=== PATIENT | female | born 1980 | race Caucasian/White ===

== ENCOUNTER 2021-04-16 15:05 | Inpatient (IN) ==
[2021-04-16] MEDS ORDERED: SODIUM CHLORIDE 0.9% 1000ML 1,000 ML IV ONE (15:22)
[2021-04-16 15:44] LABS: Basophils # (auto) 0.01 K/uL (0-0.2); Basophils % (auto) 0.1 %; Eosinophils # (auto) 0.06 K/uL (0-0.5); Eosinophils % (auto) 0.7 %; Hemoglobin 15.2 g/dL (12.0-16.0); Immature Granulocytes # (auto) 0.01 K/uL (0.00-0.02); Immature Granulocytes % (auto) 0.1 %; Lymphocytes # (auto) 2.37 K/uL (1.2-3.4); Lymphocytes % (auto) 26.6 %; Mean Corpuscular Hemoglobin 31.5 pg (25-34); Mean Corpuscular Hgb Conc 33.8 g/dL (32-36); Mean Corpuscular Volume 93.4 fL (80-100); Mean Platelet Volume 9.8 fL (7.4-10.4); Monocytes # (auto) 0.74 K/uL (0.11-0.59); Monocytes % (auto) 8.3 %; Neutrophils # (auto) 5.71 K/uL (1.4-6.5); Neutrophils % (auto) 64.2 %; Platelet Count 331 K/uL (130-400); RDW Standard Deviation 47.7 fL (36.4-46.3); Red Blood Count 4.82 M/uL (4.2-5.4)
[2021-04-16 16:03] LABS: Alanine Aminotransferase 9 U/L (7-52); Albumin Globulin Ratio 1.6 (0.9-2); Alkaline Phosphatase 87 U/L (34-104); Anion Gap 6 (3-11); Aspartate Aminotransferase 13 U/L (13-39); BUN Creatinine Ratio 17.6 (10-20); Bilirubin,Total 0.2 mg/dl (0.2-1.0); Blood Urea Nitrogen 9 mg/dl (6-23); Calcium 8.1 mg/dl (8.5-10.1); Carbon Dioxide 25 mmol/L (21-32); Chloride 109 mmol/L (98-107); Creatinine Clr Calc Pharmacy 87.8 ml/min; Est GFR (African American) 137.5 ml/min; Est GFR (Non-African American) 118.6 ml/min; Globulin 2.5 gm/dl (2.5-4.0); Glucose 83 mg/dl (70-99(Fasting)); Lipase 31 U/L (11-82); Magnesium 1.8 mg/dl (1.7-2.4); Phosphorus 3.2 mg/dl (2.5-4.9); Potassium 3.9 mmol/L (3.5-5.1); Sodium 140 mmol/L (136-145); Total Protein 6.5 gm/dl (6.0-8.3)
[2021-04-16 16:07] LABS: Troponin I < 0.03 ng/ml (0-0.04)
--- NOTE | 2021-04-16 16:18 | XRay Report ---
XR chest 1V portable CLINICAL HISTORY: Atypical chest pain. COMPARISON STUDY: Chest radiograph September 13, 2015. FINDINGS: Lung volumes are normal. Lungs are clear. There is no pneumothorax or pleural effusion. Car diac size is normal. Mediastinal contours are normal. There is no evidence for pulmonary edema. IMPRESSION: No acute cardiopulmonary findings. ACT 112: Negative or not required by law. Electronically signed by: Isael Lucio M.D. 04/16/2021 4:17 PM
--- NOTE | 2021-04-16 16:57 | CT Scan Report ---
CT OF THE HEAD WITHOUT CONTRAST CLINICAL HISTORY: Weakness. Multiple sclerosis. COMPARISON STUDY: No previous studies for comparison. CT DOSE: 773.57 mGy.cm TECHNIQUE: Helical axial images of the head were obtained without IV contrast. Automated exposure con trol was utilized for the study. A dose lowering technique was utilized adhering to the principles o f ALARA. FINDINGS: No acute intracranial hemorrhage, midline shift or mass effect is present. Note is made of several periventricular hypodensities, the most prominent of which is within the left frontal lobe. T he ventricular system is unremarkable. The basal cisterns are patent. No extra-axial collections are present. There are no findings to suggest acute dural sinus thrombosis or acute territorial infarct. No significant calvarial abnormalities are present. Visualized portions of the sinuses and mastoid ai r cells are clear. IMPRESSION: 1. No acute intracranial findings. 2. Several white matter hypodensities. Although nonspecific, these favor previous sites of demyelinat ion given the clinical history. ACT 112: Negative or not required by law. Electronically signed by: Isael Lucio M.D. 04/16/2021 4:55 PM
[2021-04-16 17:05] LABS: Pregnancy Test, Serum Negative (Negative)
[2021-04-16] MEDS ORDERED: methylPREDNISolone 125 MG/2 ML VIAL IV STA (18:10)
[2021-04-16] MEDS ORDERED: methylPREDNISolone 1,000 MG in DEXTROSE 5% 250 ML IV SCH (18:30)
[2021-04-16 18:40] LABS: Appearance Urine Cloudy (Clear); Bacteria Urine Automated 4+ (Negative); Bilirubin Urine Negative (Negative); Blood Urine Negative (Negative); Color Urine Yellow; Epithelial Cell Urine Auto >30 /lpf (0-5); Glucose Urine UA Negative (Negative); Ketones Urine Negative (Negative); Leukocyte Esterase Urine 1+ (Negative); Nitrite Urine Positive (Negative); Protein Urine Negative (Negative); RBC Urine Automated 0-4 /hpf (0-4); Urobilinogen Urine Negative (Negative); WBC Urine Automated >30 /hpf (0-5)
--- NOTE | 2021-04-16 19:33 | Emergency Department Note ---
Impression & Plan Multiple sclerosis, Dehydration, Weakness generalized ED Provider Note NAME: TITA VICENTE AGE: 40 SEX: F ARRIVES VIA: Walk-In INFORMANT: Patient, family ED PROVIDER(S): Gerardo Del Cid MD CHIEF COMPLAINT: MS flare PLAN: Disposition: Admit MEDICAL DECISION MAKING: The patient is a pleasant 40-year-old woman with a past medical history of MS who presents emerge department accompanied by her family for evaluation of worsening MS symptoms of weakness and gait instability over the past week. They also add she has worsening hearing. The family report that the got behind on her scheduled infusions but have a scheduled infusion tomorrow for Tysabri. They deny recent fevers, chills, cough, congestion, GI or symptoms. On arrival the patient is chronically ill-appearing but no acute distress, afebrile with HR in the 120s and otherwise stable vital signs. She appears clinically dry. She has generalized weakness in all extremities and has poor motor control throughout. EKG without overt acute ischemia. CXR negative for acute cardiopulmonary process. WBC, H/H and platelets normal limits. Chemistry without metabolic acidosis. Electrolytes LFTs are unremarkable. Troponin negative/undetectable. Lipase not elevated. hCG was negative. A UA is suspicious for infection albeit with epithelial cells present, will defer decision to treat to admitting team. COVID-19, RNA, JUANIS test was negative. CT of the head negative for acute pr ocess. Evidence of the patient's MS is noted. Given the severity of the patient's MS flare reasonable to meet the patient for further management. Appreciate discussion with [facility] neurology on-call, Dr. Crain. Agrees can proceed with steroids at this time as the patient has no history of PML and has yet to receive her Tysabri treatment. Case was discussed with Dr. Pappas, [facility] hospitalist, who will evaluate the patient for admission. Triage Nursing notes reviewed and agree them. Prior medical records reviewed Vital Signs: reviewed and remarkable for tachycardia. Differential diagnosis: Infection, dehydration, metabolic abnormality, hypo/hyperglycemia, electrolyte disturbance, anemia, hypoxia, cardiac sources, intracerebral event, toxicologic, neurologic, as well as other pathologies. ER treatment provided: See below. Diagnostics interpreted by me: ECG: NSR, 97bpm, no ectopy, no overt ST elevation or depression. Cardiac Monitoring: An order for continuous cardiac monitoring was placed and dana echevarria NSR, 97bpm, no ectopy. Laboratory studies: See below Imaging studies: See below Consultation(s): Case was discussed with Dr. Pappas, [facility] hospitalist, who will evaluate the patient for admission. HPI: The patient is a pleasant 40-year-old woman with a past medical history of MS who presents emerge department accompanied by her family for evaluation of worsening MS symptoms of weakness and gait instability over the past week. They also add she has worsening hearing. The family report that the got behind on her scheduled infusions but have a scheduled infusion tomorrow for Tysabri. They deny recent fevers, chills, cough, congestion, GI or symptoms. ROS: See above HPI for pertinent positives & negatives. A total of 10 systems reviewed and were otherwise negative. PAST MEDICAL HISTORY:See Below PAST SURGICAL HISTORY:See Below FAMILY HISTORY:See Below SOCIAL HISTORY:See Below HOME MEDICATIONS:See Below ALLERGIES:See Below VITALS:See Below PHYSICAL EXAMINATION: GENERAL: Awake, alert, fatigued/cachectic, chronically ill-appearing, in no distress HENT: Normocephalic, atraumatic. Oropharynx with dry mucous membranes and othe rwise unremarkable. EYES: Normal conjunctiva. Sclera non-icteric. NECK: Supple. No nuchal rigidity. FROM. No JVD. RESPIRATORY: Clear to auscultation. CARDIAC: Tachycardic rate, normal rhythm. Extremities warm and well perfused. Pulses equal. ABDOMEN: Soft, non-distended. No tenderness to palpation. No rebound or guarding. No masses. RECTAL: Deferred. MUSCULOSKELETAL: Chest examination reveals no tenderness. The back is symmetrical on inspection without obvious abnormality. There is no CVA tende rness to palpation. No joint edema. LOWER EXTREMITIES: Calves are equal size bilaterally and non-tender. No edema. No discoloration. NEURO: Generalized weakness in all extremities with poor motor coordination. SKIN: No rash or jaundice noted. Gerardo Del Cid MD Past Med/Surg History Medical History Multiple sclerosis Family History Other Family history non-contributory Social History Smoking Status: Current every day smoker Do You Dip or Chew Tobacco: No; Tobacco Cessation Education Requested by Patient: No Hx Alcohol Use: No Hx Substance Use: No Preferred Language: Malawian Communication Ability: Effective Certified Pharmacist Assistant Required: No Beliefs That Will Affect Care: None Current Living Situation: Parent Feels Safe at Home: Yes Safety Concerns: Feels Safe At This Time Assistive Devices: None Allergies Allergies Allergy/AdvReac Type Severity Reaction Status Date / Time amoxicillin Allergy Intermediate Facial Verified 04/16/21 17:09 swelling Bactrim Allergy Intermediate hands numb Verified 09/19/15 15:27 clavulanic acid Allergy Intermediate Facial Verified 04/16/21 17:09 swelling Sulfa (Sulfonamide Allergy Intermediate lips swell Verified 04/16/21 17:09 Antibiotics) sulfamethoxazole Allergy Intermediate hands numb Verified 04/16/21 17:09 trimethoprim Allergy Intermediate hands numb Verified 04/16/21 17:09 cefuroxime Allergy Unknown Hands-numbness Verified 04/16/21 17:09 and swelling azithromycin Allergy Swelling Verified 04/16/21 17:09 of Lip/Tongue/Throat Home Meds Home Medications Medication Instructions Recorded Confirmed ibuprofen 200 mg tablet (Advil) 400 mg PO Q6H PRN 04/16/21 04/16/21 Results & Data (ED) Vital Signs Vital Signs - 24 hr 04/16/21 15:07 04/16/21 15:30 04/16/21 16:00 Temperature 36.7 C Temperature Source Temporal Artery Scan Pulse Rate 122 H 90 82 Pulse Rate from SpO2 Sensor 90 82 Respiratory Rate 20 14 15 Respiratory Effort / Characteristics Non-Labored Respiratory Depth Normal Blood Pressure 102/53 L 99/61 L 120/65 Blood Pressure Mean 69 73 83 Pulse Oximetry 92 99 98 Oxygen Delivery Method Room Air Room Air Room Air Sepsis Recent Fever Within 48 Hours No Sepsis New/Unexplained Change in Mental Status No Sepsis Action Taken by Nursing No Action Required 04/16/21 16:44 04/16/21 17:00 04/16/21 17:30 Temperature Temperature Source Pulse Rate 79 83 79 Pulse Rate from SpO2 Sensor 79 82 79 Respiratory Rate 18 16 19 Respiratory Effort / Characteristics Respiratory Depth Blood Pressure 108/69 103/49 L 108/53 L Blood Pressure Mean 82 67 71 Pulse Oximetry 100 99 100 Oxygen Delivery Method Room Air Room Air Room Air Sepsis Recent Fever Within 48 Hours Sepsis New/Unexplained Change in Mental Status Sepsis Action Taken by Nursing Laboratory Data Attestation: I reviewed the patient's lab results. Result diagrams: 04/16/21 15:09 04/16/21 15:09 Lab Results 04/16/21 04/16/21 04/16/21 Range/Units 15:09 15:09 16:26 WBC 8.90 (4.8-10.8) K/uL RBC 4.82 (4.2-5.4) M/uL Hgb 15.2 (12.0-16.0) g/dL Hct 45.0 (37-47) % MCV 93.4 (80-100) fL MCH 31.5 (25-34) pg MCHC 33.8 (32-36) g/dL RDW Std Deviation 47.7 H (36.4-46.3) fL RDW Coeff of Dante 14.0 (11.5-14.5) % Plt Count 331 (130-400) K/uL MPV 9.8 (7.4-10.4) fL Immature Gran % (Auto) 0.1 % Neut % (Auto) 64.2 % Lymph % (Auto) 26.6 % [place] % (Auto) 8.3 % Eos % (Auto) 0.7 % Baso % (Auto) 0.1 % Neut # (Auto) 5.71 (1.4-6.5) K/uL Lymph # (Auto) 2.37 (1.2-3.4) K/uL [place] # (Auto) 0.74 H (0.11-0.59) K/uL Eos # (Auto) 0.06 (0-0.5) K/uL Baso # (Auto) 0.01 (0-0.2) K/uL Immature Gran # (Auto) 0.01 (0.00-0.02) K/uL Sodium 140 (136-145) mmol/L Potassium 3.9 (3.5-5.1) mmol/L Chloride 109 H (98-107) mmol/L Carbon Dioxide 25 (21-32) mmol/L Anion Gap 6 (3-11) BUN 9 (6-23) mg/dl Creatinine 0.51 L (0.6-1.2) mg/dl Est Cr Clr Drug Dosing 87.8 ml/min Est GFR ( Amer) 137.5 ml/min Est GFR (Non-Af Amer) 118.6 ml/min BUN/Creatinine Ratio 17.6 (10-20) Glucose 83 (70-99(Fasting)) mg/dl Calcium 8.1 L (8.5-10.1) mg/dl Phosphorus 3.2 (2.5-4.9) mg/dl Magnesium 1.8 (1.7-2.4) mg/dl Total Bilirubin 0.2 (0.2-1.0) mg/dl AST 13 (13-39) U/L ALT 9 (7-52) U/L Alkaline Phosphatase 87 (34-104) U/L Troponin I < 0.03 (0-0.04) ng/ml Total Protein 6.5 (6.0-8.3) gm/dl Albumin 4.0 (3.4-5.0) gm/dl Globulin 2.5 (2.5-4.0) gm/dl Albumin/Globulin Ratio 1.6 (0.9-2) Lipase 31 (11-82) U/L HCG, Qual Negative (Negative) Urine Color Urine Appearance (Clear) Urine pH (4.5-7.5) Ur Specific [place] (1.000-1.030) Urine Protein (Negative) Urine Glucose (UA) (Negative) Urine Ketones (Negative) Urine Blood (Negative) Urine Nitrite (Negative) Urine Bilirubin (Negative) Urine Urobilinogen (Negative) Ur Leukocyte Esterase (Negative) Urine WBC (Auto) (0-5) /hpf Urine RBC (Auto) (0-4) /hpf U Hyaline Cast (Auto) (0-5) /lpf U Epithel Cells (Auto) (0-5) /lpf Urine Bacteria (Auto) (Negative) Urine Yeast SARS-CoV-2, RNA, NAAT (NEGATIVE) 04/16/21 04/16/21 Range/Units 16:27 18:20 WBC (4.8-10.8) K/uL RBC (4.2-5.4) M/uL Hgb (12.0-16.0) g/dL Hct (37-47) % MCV (80-100) fL MCH (25-34) pg MCHC (32-36) g/dL RDW Std Deviation (36.4-46.3) fL RDW Coeff of Dante (11.5-14.5) % Plt Count (130-400) K/uL MPV (7.4-10.4) fL Immature Gran % (Auto) % Neut % (Auto) % Lymph % (Auto) % [place] % (Auto) % Eos % (Auto) % Baso % (Auto) % Neut # (Auto) (1.4-6.5) K/uL Lymph # (Auto) (1.2-3.4) K/uL [place] # (Auto) (0.11-0.59) K/uL Eos # (Auto) (0-0.5) K/uL Baso # (Auto) (0-0.2) K/uL Immature Gran # (Auto) (0.00-0.02) K/uL Sodium (136-145) mmol/L Potassium (3.5-5.1) mmol/L Chloride (98-107) mmol/L Carbon Dioxide (21-32) mmol/L Anion Gap (3-11) BUN (6-23) mg/dl Creatinine (0.6-1.2) mg/dl Est Cr Clr Drug Dosing ml/min Est GFR ( Amer) ml/min Est GFR (Non-Af Amer) ml/min BUN/Creatinine Ratio (10-20) Glucose (70-99(Fasting)) mg/dl Calcium (8.5-10.1) mg/dl Phosphorus (2.5-4.9) mg/dl Magnesium (1.7-2.4) mg/dl Total Bilirubin (0.2-1.0) mg/dl AST (13-39) U/L ALT (7-52) U/L Alkaline Phosphatase (34-104) U/L Troponin I (0-0.04) ng/ml Total Protein (6.0-8.3) gm/dl Albumin (3.4-5.0) gm/dl Globulin (2.5-4.0) gm/dl Albumin/Globulin Ratio (0.9-2) Lipase (11-82) U/L HCG, Qual (Negative) Urine Color Yellow Urine Appearance Cloudy A (Clear) Urine pH 7.0 (4.5-7.5) Ur Specific [place] 1.020 (1.000-1.030) Urine Protein Negative (Negative) Urine Glucose (UA) Negative (Negative) Urine Ketones Negative (Negative) Urine Blood Negative (Negative) Urine Nitrite Positive A (Negative) Urine Bilirubin Negative (Negative) Urine Urobilinogen Negative (Negative) Ur Leukocyte Esterase 1+ H (Negative) Urine WBC (Auto) >30 H (0-5) /hpf Urine RBC (Auto) 0-4 (0-4) /hpf U Hyaline Cast (Auto) 10-30 H (0-5) /lpf U Epithel Cells (Auto) >30 H (0-5) /lpf Urine Bacteria (Auto) 4+ H (Negative) Urine Yeast Not Reportable SARS-CoV-2, RNA, NAAT NEGATIVE (NEGATIVE) Administered Medications Discontinued Medications Sodium Chloride (Nss 1000ml) 1,000 mls @ 999 mls/hr IV .Q1H1M ONE Stop: 04/16/21 16:22 Last Infusion: 04/16/21 16:37 Dose: 0 mls/hr Documented by: [id number] Admin: 04/16/21 15:30 Dose: 999 mls/hr Documented by: [id number] Methylprednisolone 1,000 mg/ (Dextrose) 266 mls @ 266 mls/hr IV TODAY@1830 BRIDGET Stop: 04/16/21 19:29 Last Infusion: 04/16/21 20:20 Dose: 0 mls/hr Documented by: [id number] Admin: 04/16/21 19:16 Dose: 266 mls/hr Documented by: [id number] Methylprednisolone 734 mg/ (Dextrose) 261.744 mls @ 266 mls/hr IV NOW ONE Stop: 04/16/21 21:44 Last Infusion: 04/16/21 22:17 Dose: 0 mls/hr Documented by: [id number] Admin: 04/16/21 21:17 Dose: 266 mls/hr Documented by: [id number] Imaging Data Radiologist's Impression: Chest X-Ray 04/16/21 15:22 XR chest 1V portable CLINICAL HISTORY: Atypical chest pain. COMPARISON STUDY: Chest radiograph September 13, 2015. FINDINGS: Lung volumes are normal. Lungs are clear. There is no pneumothorax or pleural effusion. Cardiac size is normal. Mediastinal contours are normal. There is no evidence for pulmonary edema. IMPRESSION: No acute cardiopulmonary findings. ACT 112: Negative or not required by law. Electronically signed by: Isael Lucio M.D. 04/16/2021 4:[address] 04/16/21 16:10 CT OF THE HEAD WITHOUT CONTRAST CLINICAL HISTORY: Weakness. Multiple sclerosis. COMPARISON STUDY: No previous studies for comparison. CT DOSE: 773.57 mGy.cm TECHNIQUE: Helical axial images of the head were obtained without IV contrast. Automated exposure control was utilized for the study. A dose lowering technique was utilized adhering to the principles of ALARA. FINDINGS: No acute intracranial hemorrhage, midline shift or mass effect is present. Note is made of several periventricular hypodensities, the most prominent of which is within the left frontal lobe. The ventricular system is unremarkable. The basal cisterns are patent. No extra-axial collections are present. There are no findings to suggest acute dural sinus thrombosis or acute territorial infarct. No significant calvarial abnormalities are present. Vi sualized portions of the sinuses and mastoid air cells are clear. IMPRESSION: 1. No acute intracranial findings. 2. Several white matter hypodensities. Although nonspecific, these favor previous sites of demyelination given the clinical history. ACT 112: Negative or not required by law. Electronically signed by: Isael Lucio M.D. 04/16/2021 4:55 PM Discharge Plan Visit Data Chief Complaint: Neuro Symptoms/Deficit Stated Complaint: SLURRED SPEECH, NOT ABLE TO HEAR, OFF BALANCE Discharge Problem: Multiple sclerosis, Dehydration, Weakness generalized Patient Disposition: Admitted As Inpatient Discharge Instructions Interventions: ED Discharge Assessment Last Done: 04/16/21 20:56
--- NOTE | 2021-04-16 19:40 | History & Physical Report ---
Date of Service April 16, 2021 Assessment & Plan (1) Multiple sclerosis: Plan: MS Progression Present on admission due to worsening weakness from MS progression CT head showed several white matter hypodensities. Patient is scheduled tomorrow with neurology to start onTysabri injection Consult neurology Case discussed with Dr. Crain recommend to start on IV methylprednisone 1000 mg daily for 5 days We will get an MRI of the brain Ambulatory dysfunction Due to MS exacerbation PT/OT eval Fall precaution DVT prophylaxis SCD CODE status Full code History of Present Illness Chief Complaint: MS flare-ups Primary Care Provider: Gladys Ortiz MD 40 years old with past medical history of multiple sclerosis was brought to the ER due to worsening weakness and ambulatory dysfunction. History obtained mostly from the family due to patient is very hard of hearing. For the past 2 w eeks family said patient has been very weak. She fell couple times due to ambulatory dysfunction. Her hearing function has been declining lately as per family. Patient saw neurology Dr. Villafana on 03/[address] Villafana was planning to start on Tysabri injection tomorrow for the MS progression. Denies any chest pain, palpitation, numbness, dizziness, shortness of breath. Allergies Allergy/AdvReac Type Severity Reaction Status Date / Time amoxicillin Allergy Intermediate Facial Verified 04/16/21 17:09 swelling Bactrim Allergy Intermediate hands numb Verified 09/19/15 15:27 clavulanic acid Allergy Intermediate Facial Verified 04/16/21 17:09 swelling Sulfa (Sulfonamide Allergy Intermediate lips swell Verified 04/16/21 17:09 Antibiotics) sulfamethoxazole Allergy Intermediate hands numb Verified 04/16/21 17:09 trimethoprim Allergy Intermediate hands numb Verified 04/16/21 17:09 cefuroxime Allergy Unknown Hands-numbness Verified 04/16/21 17:09 and swelling azithromycin Allergy Swelling Verified 04/16/21 17:09 of Lip/Tongue/Throat Home Medications Medication Instructions Recorded Confirmed Type ibuprofen 200 mg tablet (Advil) 400 mg PO Q6H PRN 04/16/21 04/16/21 History Past Med/Surg History Medical History Multiple sclerosis Family History Other Family history non-contributory Social History Smoking Status: Current every day smoker Do You Dip or Chew Tobacco: No; Tobacco Cessation Education Requested by Patient: No Hx Alcohol Use: No Hx Substance Use: No Preferred Language: Ivorian Communication Ability: Effective Human Factors Ergonomist Required: No Beliefs That Will Affect Care: None Current Living Situation: Parent Feels Safe at Home: Yes Safety Concerns: Feels Safe At This Time Assistive Devices: None Review of Systems Review of Systems: All systems reviewed & are unremarkable except as noted in Subjective Physical Exam Physical Exam: General- cachetic Head- atraumatic Eyes- PERRL, EOMI, ENT- +decrease hearing function Neck- supple, no JVD Lungs- clear to auscultation Heart- regular rhythm; no murmur Abdomen- normal bowel sounds, soft, nontender Extremities- no calf tenderness Neuro- alert, oriented; PERRL, EOMI; no facial palsy; no dysarthria Skin- warm & dry Results & Data Results & Data ([facility]) Vital Signs (Past 12 Hours) Vital Signs Temp Pulse Resp BP Pulse Ox 04/16/21 17:30 79 19 108/53 L 100 04/16/21 17:00 83 16 103/49 L 99 04/16/21 16:44 79 18 108/69 100 04/16/21 16:00 82 15 120/65 98 04/16/21 15:30 90 14 99/61 L 99 04/16/21 15:07 36.7 C 122 H 20 102/[address] OF THE HEAD WITHOUT CONTRAST CLINICAL HISTORY: Weakness. Multiple sclerosis. COMPARISON STUDY: No previous studies for comparison. CT DOSE: 773.57 mGy.cm TECHNIQUE: Helical axial images of the head were obtained without IV contrast. Automated exposure control was utilized for the study. A dose lowering technique was utilized adhering to the principles of ALARA. FINDINGS: No acute intracranial hemorrhage, midline shift or mass effect is present. Note is made of several periventricular hypodensities, the most prominent of which is within the left frontal lobe. The ventricular system is unremarkable. The basal cisterns are patent. No extra-axial collections are present. There are no findings to suggest acute dural sinus thrombosis or acute territorial infarct. No significant calvarial abnormalities are present. Visualized portions of the sinuses and mastoid air cells are clear. IMPRESSION: 1. No acute intracranial findings. 2. Several white matter hypodensities. Although nonspecific, these favor previous sites of demyelination given the clinical history. ACT 112: Negative or not required by law. Electronically signed by: Isael Lucio M.D. 04/16/2021 4:55 PM Dictated:04/16/21 1651 Transcribed: 04/16/211650 XR chest 1V portable CLINICAL HISTORY: Atypical chest pain. COMPARISON STUDY: Chest radiograph September 13, 2015. FINDINGS: Lung volumes are normal. Lungs are clear. There is no pneumothorax or pleural effusion. Cardiac size is normal. Mediastinal contours are normal. There is no evidence for pulmonary edema. IMPRESSION: No acute cardiopulmonary findings. ACT 112: Negative or not required by law. Electronically signed by: Isael Lucio M.D. 04/16/2021 4:17 PM Dictated:04/16/21 1616 Transcribed: 04/16/21 1616
[2021-04-16] MEDS ORDERED: DEXTROSE 5% IV ONE (20:45)
[2021-04-16] MEDS ORDERED: METHYLPREDNISOLONE IV ONE (20:45)
--- NOTE | 2021-04-17 12:48 | Electrocardiogram Report ---
Test Reason : Blood Pressure : / mmHG Vent. Rate : 097 BPM Atrial Rate : 097 BPM P-R Int : 112 ms QRS Dur : 082 ms QT Int : 334 ms P-R-T Axes : 088 124 075 degrees QTc Int : 424 ms Normal sinus rhythm Biatrial enlargement Right axis deviation Abnormal ECG When compared with ECG of 13-SEP-2015 19:06, QRS axis Shifted right Confirmed by King Sandoval [id number]) on 04/17/2021 12:47:41 PM Referred By: REFERRED SELF Confirmed By:King Sandoval
[2021-04-17] MEDS: SODIUM CHLORIDE 0.9% 1000ML 1,000 ML IV SCH ×2 (13:06→22:39)
[2021-04-17] MEDS: CARBAMIDE PEROXIDE 6.5% 15 ML BTL OT SCH (16:21)
[2021-04-17] MEDS: methylPREDNISolone 1,000 MG in DEXTROSE 5% 250 ML IV SCH (19:36)
--- NOTE | 2021-04-17 20:32 | Consultation Report ---
DATE OF SERVICE: 04/17/2021 REASON FOR CONSULTATION: Multiple sclerosis. HISTORY OF PRESENT ILLNESS: Rachana is a patient of Dr. Villafana's who has been relatively noncompliant over the last several months or years. On this background, Dr. Villafana recently saw her in the office and he indicated that she had multiple sclerosis since she was a teenager and presented with some distal tingling involving the left leg and found to have extensive spinal cord lesions and brain lesions. She was intermittently not living in the area and Dr. Villafana believes that in the past, she has been on Betaseron and possibly Copaxone, but her disease continued to progress. She was placed on Tysabri about 10 years ago, which seemed to stabilize her to some degree, although after about 5 years, she had a flare of activity and there was some concern about PML. She was seen at [facility] at that time for imaging studies. CSF studies were negative for PML and by report, she continues to be negative for the JUAN FRANCISCO virus. Over the years, she has been , unable to hold jobs. She lives alone in [place], but her stepmother has been involved in her care. Step mother was available for my visit. Over time, it appears that the Tysabri infusions were increased in interval because of concern about long-term consequences and at times she was erratic in showing up for infusions and having blood work, but in general, he reported her to be doing fairly well in that regard. At that time, which was 3 weeks ago, he described her as hypomanic, distractable and humming. Cranial nerves grossly intact. Gait, station and coordination actually reasonably good with minimal dystaxia and spasticity. Reflexes were normal. He had performed an MRI of the brain with and without contrast on 03/18; this showed extensive demyelinating plaques throughout the supratentorial white matter and brainstem consistent with multiple sclerosis. There are no new active demyelinating lesions along the left precentral gyrus and right cerebral peduncle. The overall burden of disease was increased throughout the brainstem since 2015 when she was last imaged. Her MRI of the cervical spine shows considering differences in slice selection and technique and motion degradation, multiple ill-defined intramedullary T2/STIR hyperintense foci represented, chronic demyelinating plaques are overall unchanged with the most conspicuous being at C1 and C2. Dr. Villafana rescheduled her for Tysabri, which she was to be receiving today and was scheduling an appointment with Dr. Hodge to advise further on disease-modifying therapy. According to her stepmother. They found her to be much impaired over the weekend, but leading up to that, she had been increasingly dysarthric for about 6 months and having increasing difficulty with cognition. Over the last several weeks, she has had a marked decline in hearing, which is being attributed to her ears being occluded with cerumen. Her hearing is so poor at this point that I had to communicate with the assistance of a nurse. The step-mother indicates she was living alone, essentially not using an assistive device, paying her own bills. She is very thin and the step mother indicates that this has always been the case, but she may have lost 5-6 pounds. PHYSICAL EXAMINATION: On examination, she is very thin. She is mildly restless. She is oriented to person and place. No obvious right/left confusion. Her neck is supple. Her head is normocephalic, atraumatic. Her pupils were poorly reactive. I did not appreciate an afferent pupillary defect and could not see the optic nerves reliably. Normal visual rucker, motility. There is a mild flattening of the right nasolabial fold and speech is modestly dysarthric. Her tone appears normal throughout exam. She was mildly generally weaker, more so on the right than the left. Her reflexes were symmetric. Toes appear to be upgoing. There was some dystaxia on [id number], osbh-kn-[id number] a little less easy to recognize. Her gait was wide-based and ataxic with the assistance of two and a walker. 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 Her compliance with medications in the last year and a half has been poor and she has declined in cognition and language. Whether or not her hearing is impaired from cerumen is unclear to this examiner. The staff is trying to clean her ears out and will remain to be seen whether she is hearing impaired. In general, we would not expect hearing loss with multiple sclerosis. Given the major change in function since she was seen last, I recommend a followup MRI of the brain. She does appear to have a urinary tract infection and this could be etiologic in her symptoms. I agree with IV steroids x5 days. We will need to make sure that the patient does not get restless or hypomanic. I have ordered some additional laboratories for things that can affect cognition and balance such as B12, folate, RPR. We will follow with you. Job ID: [id number] [facility]
--- NOTE | 2021-04-17 23:11 | Hospitalist Progress Note ---
Date of Service April 17, 2021 Assessment & Plan (1) Multiple sclerosis: Plan: MS Progression Present on admission due to worsening weakness from MS progression CT head showed several white matter hypodensities. Consult neurology Case discussed with Dr. Crain on admisison that recommended to start on IV methylprednisone 1000 mg daily for 5 days Continue IV steroid 1000mg x5 days MRI of the brain pending B12, folate, RPR pending Abnormal UA Urine cx grew staph species Denies any urinary symptoms Possible contamination Will repeat urine cx Will hold on abx for now Will monitor WBC and Temp Decrease hearing Function Wax in ears canal Will add debrox If no improvement, will need to get eval by ENT Ambulatory dysfunction Due to MS exacerbation PT/OT eval Fall precaution DVT prophylaxis SCD CODE status Full code Admission and Anticipated Discharge Date Admission Date: April 16, 2021 Subjective Pt was seen and examined for follow up of MS flare-ups Lying in bed with no acute distress Pt continues to have problem to hear She has a very poor appetite Pt denies any urinary symptoms Denies any chest pain, palpitation, dizziness and SOB Review of Systems Review of Systems: All systems reviewed & are unremarkable except as noted in Subjective Physical Exam Physical Exam: General- cachetic Head- atraumatic Eyes- PERRL, EOMI, ENT- +decrease hearing function, +waxes Neck- supple, no JVD Lungs- clear to auscultation Heart- regular rhythm; no murmur Abdomen- normal bowel sounds, soft, nontender Extremities- no calf tenderness Neuro- alert, oriented; PERRL, EOMI; no facial palsy; no dysarthria Skin- warm & dry Results & Data Results & Data ([facility]) Vital Signs (Past 12 Hours) Vital Signs Temp Pulse Resp BP BP Pulse Ox 04/17/21 22:00 36.2 C L 78 18 94/47 L 95 04/17/21 15:00 36.3 C L 83 16 102/52 L 97
[2021-04-18] MEDS: CARBAMIDE PEROXIDE 6.5% 15 ML BTL OT SCH ×4 (01:10→17:02)
[2021-04-18 07:55] LABS: Folate (Folic Acid) 16.2 ng/ml (>5.38)
[2021-04-18] MEDS: methylPREDNISolone 1,000 MG in DEXTROSE 5% 250 ML IV SCH (07:58)
[2021-04-18] MEDS: SODIUM CHLORIDE 0.9% 1000ML 1,000 ML IV SCH (09:44)
--- NOTE | 2021-04-18 13:59 | Psychiatric Consultation ---
Date of Consultation April 18, 2021 Impression / Recommendations Impression 40 yo female with no formal psych history presents with some personality change/decline in executive functioning coinciding with worsening of MS and/or steroid requirement. She currently has a low TSH. Neurology wanted an opinion as to possible hypomania particularly given methylprednisolone. (1) Adjustment disorder with anxiety: (2) Multiple sclerosis: (3) Abnormal TSH: recommend work up with additional thyroid tests to rule out hyperthyroidism as a contributing factor. no current evidence of francisco j on exam but certainly steroids can cause she declined therapy referral for ongoing adjustment issues to chronic disease there is limited availability of neuropsych testing in this area but u neuropsych clinic would be ideal for further evaluated impact of brain lesions on processing speed and working memory defer any decisions re: driving to neurology Risk Factors Assessment Do You Have Access To A Gun?: No Psych History Identifying Data 40 yo female who lives alone in [place] admit for MS exacerbation. Outpatient of neurologist Dr. Villafana. The patient is very hard of hearing and has to read from a written paper. She gave consent to me speaking with family for collateral. Additional history was provided by her father. Chief Complaint "My mood is fine, not sure what else I can say". History of Present Illness Rachana has a long history of MS, has been sporadically compliant with treatment, missed some infusions of Tysabri. Father denies that she has been more reclusive or unable to care for herself until 2 weeks ago. He notes she is a reactive personality at baseline (like not taking criticism well) but she is not aggressive, doesn't have verbal outbursts, and visits with them regularly. She doesn't have "much of an attention span" for things lately, seemingly more anxious since later January. He denies a specific fear other than takes prn Ativan at times before MRI's as "just hates them". She was able to drive to their home and talk on the phone up until 2-3 days prior to admission. He directed her to the ED for weakness. Both the patient and father deny sleep disturbance or other symptoms of francisco j. She may be "moodier" when on steroids. She has financial issues as still not approved for SSD. She is "probably" lonelier as daughter is now in college in the [place] area and only comes home on breaks. Son is stationed in [place] for the [employer]. When asked about academic and job history, father stated that she was a good student and could have "done whatever she wanted", specifically denying ADHD. She got and raised her young children while also working parttime jobs like for several years at [employer]. She hasn't been able to work since 2017, reports multiple jobs/frequent job changes in the year leading up to that. It wasn't that she impulsively left jobs or had outbursts there but her MS contributed to limitations that couldn't be accommodated (and/or she didn't have the patience to do so as can be stubborn). Past Psychiatric History Previous Psych History: none Previous Psych Admissions: denied Do You Have Access To A Gun?: No History of Previous Suicide Attempt: No Past Medication Trials: Ativan, maybe Celexa Allergies Allergy/AdvReac Type Severity Reaction Status Date / Time amoxicillin Allergy Intermediate Facial Verified 04/16/21 17:09 swelling Bactrim Allergy Intermediate hands numb Verified 09/19/15 15:27 clavulanic acid Allergy Intermediate Facial Verified 04/16/21 17:09 swelling Sulfa (Sulfonamide Allergy Intermediate lips swell Verified 04/16/21 17:09 Antibiotics) sulfamethoxazole Allergy Intermediate hands numb Verified 04/16/21 17:09 trimethoprim Allergy Intermediate hands numb Verified 04/16/21 17:09 cefuroxime Allergy Unknown Hands-numbness Verified 04/16/21 17:09 and swelling azithromycin Allergy Swelling Verified 04/16/21 17:09 of Lip/Tongue/Throat Home Medications Medication Instructions Recorded Confirmed Type ibuprofen 200 mg tablet (Advil) 400 mg PO Q6H PRN 04/16/21 04/16/21 History Family History maternal grandfather committed suicide after several years of abusing Etoh. Substance Abuse History denied Personal History Highest Grade Completed: High School Graduate Marital Status: (ex was in ) Number Of Children: 2 Beliefs That Will Affect Care: None History of Legal Problems: denied Psychological Trauma History Comment: denied Patient History Medical History Multiple sclerosis Family History Other Family history non-contributory Social History Smoking Status: Current every day smoker Do You Dip or Chew Tobacco: No; Tobacco Cessation Education Requested by Patient: No Hx Alcohol Use: No Hx Substance Use: No Preferred Language: Romansh Communication Ability: Impaired Manager Food Beverage Required: No Beliefs That Will Affect Care: None Current Living Situation: Parent Feels Safe at Home: Yes Safety Concerns: Feels Safe At This Time Assistive Devices: None Physical Exam Psychiatric: Orientation: alert and oriented x 3 Apperance: appropriately dressed Eye Contact: good eye contact Motor Behavior: no abnormal motor movements Speech: normal rate/rhythm/volume of speech (but some articulation difficulties) Affect: + constricted affect Mood: no depressed mood Thought Process: + concrete thought process Thought Content: reality based without delusions Suicidal Thoughts: denies suicidal thoughts Homicidal Thoughts: denies homicidal thoughts Hallucinations: no auditory hallucinations and no visual hallucinations Cognition: attention grossly intact and language grossly intact Estimated Intelligence: consistent with education level Insight: + limited insight Vital Signs (Past 24 Hours): Last Vital Signs Temp 36.4 C L 04/18/21 07:39 Pulse 77 04/18/21 07:39 Resp 18 04/18/21 07:39 BP 101/60 04/18/21 07:39 Pulse Ox 97 04/18/21 07:39 Review of Systems All systems reviewed & are unremarkable except as noted in HPI & below Results & Data ([facility]) Laboratory Results 04/18/21 04/18/21 04/18/21 Range/Units 06:01 06:01 06:01 Vitamin B12 205 (180-914) pg/ml Folate 16.20 (>5.38) ng/ml TSH 0.093 L (0.300-4.500) uIu/ml RPR Pending Medications Administered Carbamide Peroxide (Carbamide Peroxide 6.5% 15 Ml Btl) 2 drops OT Q6 BRIDGET Stop: 04/20/21 15:59 Last Admin: 04/18/21 12:43 Dose: 2 drops Documented by: [id number] Admin: 04/18/21 05:38 Dose: 2 drops Documented by: [id number] Admin: 04/18/21 01:10 Dose: 2 drops Documented by: [id number] Admin: 04/17/21 16:21 Dose: 2 drops Documented by: [id number] Methylprednisolone 1,000 mg/ (Dextrose) 266 mls @ 266 mls/hr IV DAILY BRIDGET Stop: 05/17/21 19:59 Last Infusion: 04/18/21 09:43 Dose: 0 mls/hr Documented by: [id number] Admin: 04/18/21 07:58 Dose: 266 mls/hr Documented by: [id number] Infusion: 04/17/21 20:41 Dose: 0 mls/hr Documented by: [id number] Admin: 04/17/21 19:36 Dose: 266 mls/hr Documented by: [id number] Coding Level of Care Code 04525 Inpt Consult Level 3 Diagnoses Adjustment disorder with anxiety F43.22 Multiple sclerosis G35 Abnormal TSH R79.89
--- NOTE | 2021-04-18 15:15 | Neurology Progress Note ---
Date of Service April 18, 2021 Assessment & Plan (1) Multiple sclerosis: Plan: 1. continue methpredinsone 1g IV x 5 days 2. MRI brain with and without for any new lesions 3. PT/OT for discharge needs 4. psychiatry for any recommendations 5. social issues will need a home assessment for safety issues. 6. TSH low .093 need follow up with T3/4 7. outpatient should follow through with restart of Tysabri and follow up scheduled with Dr Hodge (2) Weakness generalized: Admission and Anticipated Discharge Date Admission Date: April 16, 2021 Supervising Physician Co-Signing Physician Notes I have seen and discussed above patient with Dr Samara Wilburn, neurology> pt seen and examined, exam unchanged. hearing still impaired. There is bilateral cerumen in both external canals. Patient refused MRI last evening although seems willing to have MRI if she is sedated. I have conveyed that information to Dr. Quevedo. Impression secondarily progressive multiple sclerosis increased symptoms possibly due to urinary tract infection. Continue steroid taper with outpatient evaluation with her multiple sclerosis specialist. Dr. Villafana has recommended that we have psychiatry see her. Her mother is in agreement as she believes she is depressed and that may be why of she is not caring for herself. I did also explain to her that she appears to have cognitive impairment which may be contributing. Social service consultation to assess home living situation. I believe this patient needs some type of short-term placement until it is determined whether she can go back to her own home. At present she does not appear to be competent or safe to do so. Her B12 level is low recommend supplementation her TSH is high recommend T4. We will follow with you Subjective Rachana is a 40 year old female who has been in the past by Dr. Villafana in our office most recently 03/31/2021. She had multiple sclerosis since she was a teenager and presented with some distal tingling involving the left leg and found to have extensive spinal cord lesions and brain lesions. She was intermittently not living in the area and Dr. Villafana believes that in the past, she has been on Betaseron and possibly Copaxone, but her disease continued to progress. She was placed on Tysabri about 10 years ago, which seemed to stabilize her to some degree, although after about 5 years, she had a flare of activity and there was some concern about PML. She was seen at [facility] at that time for imaging studies, CSF studies were negative for PML and is negative for the JUAN FRANCISCO virus.She lives alone in [place], but her stepmother has been involved in her care. The Tysabri infusions were increased in interval because of concern about long-term consequences and at times she was erratic in showing up for infusions and having blood work but doing fairly well. During Dr Villafana visit she was described as hypomanic, distractible and humming. there was anMRI of the brain with and without contrast on 03/18; this showed extensive demyelinating plaques throughout the supratentorial white matter and brainstem consistent with multiple sclerosis. The overall burden of disease was increased throughout the brainstem since 2016 when she was last imaged. Her MRI of the cervical spine shows considering differences in slice selection and technique and motion degradation, multiple ill-defined intramedullary T2/STIR hyperintense foci represented, chronic demyelinating plaques are overall unchanged with the most conspicuous being at C1 and C2. She was then rescheduled her for Tysabri, and was scheduling an appointment with Dr. Hodge to advise further on disease- modifying therapy. They found her to be much impaired over the weekend, but leading up to that, she had been increasingly dysarthric for about 6 months and having increasing difficulty with cognition. She has had a marked decline in hearing, which is being attributed to her ears being occluded with cerumen. Her step mom and mom are in the room and agree she is not taking care of herself. Review of Systems Review of Systems: Other unable to hear Physical Exam Physical Exam: Physical Exam: Constitutional: appearance very thin, unkempt Ears, Nose, Mouth and Throat: mucous membranes moist, no injection and skin normal, eyes normal Cardiovascular: normal S-1 and S-2 and regular rate and rhythm Respiratory: normal respiratory Musculoskeletal: no peripheral edema Skin: no stigmata of neurocutaneous disease noted and normal and intact Eyes: extraocular muscles intact (EOMI) NEUROLOGIC EXAMINATION: Mental status: Alert and interactive Oriented to full date and location Oriented to person Speech very difficult to understand Cranial Nerves right sided nasolabial fold Reflexes: Deep tendon reflexes were brisk Coordination: finger to nose with dysmetria Gait/Stance: Posture very unsteady with standing and balance issues Strength: right side hand transit coach operator biceps triceps 4/5 hip flex 4+/5 left 4/5 right Results & Data ([facility]) Vital Signs (Past 12 Hours) Vital Signs Temp Pulse Resp BP Pulse Ox 04/18/21 07:39 36.4 C L 77 18 101/60 97 Laboratory Results Abnormal lab results 04/18/21 Range/Units 06:01 TSH 0.093 L (0.300-4.500) uIu/ml Diagnostic Findings no new imaging
[2021-04-18] MEDS ORDERED: LORazepam 2 MG/1 ML VIAL IV ONE (17:30)
[2021-04-18] MEDS ORDERED: LORazepam 2 MG/1 ML VIAL IV SCH (19:00)
--- NOTE | 2021-04-18 23:41 | Hospitalist Progress Note ---
Date of Service April 18, 2021 Assessment & Plan (1) Multiple sclerosis: Plan: MS Progression Present on admission due to worsening weakness from MS progression CT head showed several white matter hypodensities. Consult neurology Case discussed with Dr. Crain on admisison that recommended to start on IV methylprednisone 1000 mg daily for 5 days Continue IV steroid 1000mg x5 days MRI of the brain pending - (Pt refused to get Brain MRI last night) TSH was 0.093 (L) and B12 was 205 UTI Urine cx grew staph species - Coag neg staph not saprophytic Denies any urinary symptoms Possible contamination Repeat urine cx grew staph species Will consider to start on nitrofurantoin if repeat cx remains positive Will monitor for sign of febrile Decrease hearing Function Wax in ears canal Will add debrox If no improvement, will need to get eval by ENT Ambulatory dysfunction Due to MS exacerbation PT/OT eval Fall precaution DVT prophylaxis SCD CODE status Full code Admission and Anticipated Discharge Date Admission Date: April 16, 2021 Subjective Pt was seen and examined for follow up of MS flare-ups Sitting in bed with no acute distress Pt continues to have a hard time to hear She has a very poor appetite Pt denies any urinary symptoms She refused to go for the MRI last night Neuro said she might consider to get the MRI if we order something to sedate her Denies any chest pain, palpitation, dizziness and SOB Review of Systems Review of Systems: All systems reviewed & are unremarkable except as noted in Subjective Physical Exam 2 Physical Exam: General- cachetic Head- atraumatic Eyes- PERRL, EOMI, ENT- +decrease hearing function, +waxes Neck- supple, no JVD Lungs- clear to auscultation Heart- regular rhythm; no murmur Abdomen- normal bowel sounds, soft, nontender Extremities- no calf tenderness Neuro- alert, oriented; PERRL, EOMI; no facial palsy; no dysarthria Skin- warm & dry Results & Data Results & Data ([facility]) Vital Signs (Past 12 Hours) Vital Signs Temp Pulse Resp BP BP Pulse Ox 04/18/21 22:34 36.4 C L 69 16 104/68 98 04/18/21 16:13 36.5 C 78 18 115/57 L 96
[2021-04-19] MEDS: CARBAMIDE PEROXIDE 6.5% 15 ML BTL OT SCH ×4 (05:39→18:31)
[2021-04-19 08:39] LABS: Hematocrit (blood only) 37.2 % (37-47); Hemoglobin 12.3 g/dL (12.0-16.0); Mean Corpuscular Hgb Conc 33.1 g/dL (32-36); Mean Corpuscular Volume 93.7 fL (80-100); Mean Platelet Volume 9.9 fL (7.4-10.4); Platelet Count 266 K/uL (130-400); RDW Coefficient of Variation 14.6 % (11.5-14.5); RDW Standard Deviation 50.1 fL (36.4-46.3); Red Blood Count 3.97 M/uL (4.2-5.4); White Blood Count 14.26 K/uL (4.8-10.8)
[2021-04-19] MEDS: methylPREDNISolone 1,000 MG in DEXTROSE 5% 250 ML IV SCH (10:10)
[2021-04-19] MEDS: CYANOCOBALAMIN (B-12) 100 MCG TABLET PO SCH (11:44)
--- NOTE | 2021-04-19 12:16 | Hospitalist Progress Note ---
Date of Service April 19, 2021 Assessment & Plan (1) Multiple sclerosis: Plan: MS Progression Present on admission due to worsening weakness from MS progression CT head showed several white matter hypodensities. Consult neurology Case discussed with Dr. Crain on admission that recommended to start on IV methylprednisone 1000 mg daily for 5 days Continue IV steroid 1000mg x5 days, Day #3 MRI of the brain pending -pt planning on getting today TSH was 0.093 (L), Free T4 normal and B12 was 205 UTI Urine cx grew staph species - Coag neg staph not saprophytic Denies any urinary symptoms Possible contamination Repeat urine cx grew staph species Will consider to start on nitrofurantoin if repeat cx remains positive afebrile, wbc elevated but likely 2/2 to steroids Decrease hearing Function Wax in ears canal Will add debrox If no improvement, will need to get eval by ENT as OP Ambulatory dysfunction Due to MS exacerbation PT/OT eval Fall precaution DVT prophylaxis SCD CODE status Full code Admission and Anticipated Discharge Date Admission Date: April 16, 2021 Supervising Physician Co-Signing Physician Notes Attending addendum The patient was seen and examined in presence of the stepmom She is a little improved but he still has significant ambulatory dysfunction Denies any significant symptoms at rest On examination No apparent distress at rest Communicated through writing Chest-clear to auscultate bilaterally Heart-S1, S2 regular Abdomen-benign Extremities-negative for any edema SENIOR PRODUCTION PLANNER-alert, awake and oriented x3. No focal sensory or no motor deficit appreciated No bladder and or bowel problem Has significant ambulatory dysfunction Labs were noted Awaiting MRI of the brain with and without contrast We will continue intravenous Solu-Medrol 1000 mg daily for 5 days Agree with assessment and plan as outlined above by Amirah Escalera Subjective Patient was seen and examined in room 388-2. Follow-up MS exacerbation. Offers no acute concerns. Is hard of hearing. Overall poor appetite. Refused to get MRI, but is planning to get it this morning. Denies chest pain, shortness of breath, nausea, vomiting, abdominal pain fever, chills, sweats. Denies urinary symptoms. Review of Systems Review of Systems: All systems reviewed & are unremarkable except as noted in HPI & below Physical Exam Physical Exam: Gen: Thin, frail, hard of hearing, female, good eye mobility, cachectic, alert and oriented HEENT: Normocephalic, atraumatic, R temporal wasting, conjunctivae moist, sclerae anicteric, mucous membranes moist. Lung: Clear to Auscultation bilaterally, no wheezes/rales/rhonchi Heart: Regular rate, regular rhythm, no murmurs, rubs, or gallops Abdomen: Soft, NT, ND +BS x 4 Extremities: No edema Skin: Warm, no rash, negative turgor. Results & Data Results & Data ([facility]) Vital Signs (Past 12 Hours) Vital Signs Temp Pulse Resp BP Pulse Ox 04/19/21 07:51 36.9 C 69 18 93/54 L 96 Laboratory Results Short CBC 04/19/21 Range/Units 08:23 WBC 14.26 H (4.8-10.8) K/uL Hgb 12.3 (12.0-16.0) g/dL Hct 37.2 (37-47) % Plt Count 266 (130-400) K/uL Medications Administered Current Inpatient Medications Carbamide Peroxide (Carbamide Peroxide 6.5% 15 Ml Btl) 2 drops OT Q6 BRIDGET Stop: 04/20/21 15:59 Last Admin: 04/19/21 11:44 Dose: 2 drops Documented by: Cyanocobalamin (Cyanocobalamin (B-12) 100 Mcg Tablet) 100 mcg PO QAM BRIDGET Stop: 05/19/21 08:59 Last Admin: 04/19/21 11:44 Dose: 100 mcg Documented by: Methylprednisolone 1,000 mg/ (Dextrose) 266 mls @ 266 mls/hr IV DAILY BRIDGET Stop: 05/17/21 19:59 Last Infusion: 04/19/21 11:28 Dose: Infused Documented by: Lorazepam (Lorazepam 2 Mg/1 Ml Vial) 0.5 mg IV TODAY@1900 BRIDGET Stop: 04/19/21 18:59
--- NOTE | 2021-04-19 13:23 | Neurology Progress Note ---
Date of Service April 19, 2021 Assessment & Plan (1) Multiple sclerosis: Plan: 1. continue methpredinsone 1g IV x 5 days 2. MRI brain with and without for any new lesions- has been refusing but now agrees to imaging 3. PT/OT for discharge needs 4. psychiatry for any recommendations- unable to full assess due to hearing issues 5. social issues will need a home assessment for safety issues. should not be living alone at this point 6. TSH low .093 need follow up with T3/4 free T4 .69 T3 pending 7. outpatient should follow through with restart of Tysabri and follow up scheduled with Dr Hodge will sign off for now but will chart check for imaging- ok to discharge when medically stable (2) Weakness generalized: Plan: 1. home PT if she will cooperate Admission and Anticipated Discharge Date Admission Date: April 16, 2021 Supervising Physician Co-Signing Physician Notes I have seen and discussed above patient with Dr Samara Wilburn, neurology. Patient seen at bedside with the patient's mother present she appears much the same still nasally dysarthric right central facial weakness some restlessness. Impression secondarily progressive multiple sclerosis patient agrees to MRI brain with and without contrast. Tomorrow should be day 5 of IV Solu-Medrol. Follow with the prednisone taper 80 mg for 2 days 60 mg for 4 days 40 mg for 4 days 20 mg for 4 days 10 mg for 4 days and then off. Patient should see Dr. Villafana in follow-up he can decide whether or not to reinstitute Tysabri. Ocrevus might be an option Psychiatry should see her as an outpatient as they were unable to communicate adequately with her due to her current hearing situation By report ENT does not come to the hospital patient should be seen by ENT soon after discharge Inpatient therapy would likely be most helpful although patient is not interested in doing so. I believe the plan is for her to be discharged to home with either her mother or his stepmother with her attending outpatient physical therapy will sign off at present but will check in on the results of her MRI Samara Wilburn MD Neo Reich is a 40 year old female who has been in the past by Dr. Villafana in our office most recently 03/31/2021. She had multiple sclerosis since she was a teenager and presented with some distal tingling involving the left leg and found to have extensive spinal cord lesions and brain lesions. She was i ntermittently not living in the area and Dr. Villafana believes that in the past, she has been on Betaseron and possibly Copaxone, but her disease continued to progress. She was placed on Tysabri about 10 years ago, which seemed to stabilize her to some degree, although after about 5 years, she had a flare of activity and there was some concern about PML. She was seen at [facility] at that time for imaging studies, CSF studies were negative for PML and is negative for the JUAN FRANCISCO virus.She lives alone in [place], but her stepmother has been involved in her care. The Tysabri infusions were increased in interval because of concern about long-term consequences and at times she was erratic in showing up for infusions and having blood work but doing fairly well. During Dr Villafana visit she was described as hypomanic, distractible and humming. there was anMRI of the brain with and without contrast on 03/18; this showed extensive demyelinating plaques throughout the supratentorial white matter and brainstem consistent with multiple sclerosis. The overall burden of disease was increased throughout the brainstem since 2016 when she was last imaged. Her MRI of the cervical spine shows considering differences in slice selection and technique and motion degradation, multiple ill-defined intramedullary T2/STIR hyperintense foci represented, chronic demyelinating plaques are overall unchanged with the most conspicuous being at C1 and C2. She was then rescheduled her for Tysabri, and was scheduling an appointment with Dr. Hodge to advise further on disease-modifying therapy. They found her to be much impaired over the weekend, but leading up to that, she had been increasingly dysarthric for about 6 months and having increasing difficulty with cognition. She has had a marked decline in hearing, which is being attributed to her ears being occluded with cerumen. Her step mom is in the room and the plan is to take her home and she will live with either mom or step mom. She is consenting to the MRI but it has not been done yet. She worked with PT to day and walked down the wharton with them but was every unsteady but did use the walker. She is still having hearing issues and wants to go home. Review of Systems Review of Systems: Unobtainable due to mental health condition and Other difficult to communicate due to hearing loss Physical Exam Physical Exam: Physical Exam: Constitutional: appearance very thin, unkempt Ears, Nose, Mouth and Throat: mucous membranes moist, no injection and skin normal, eyes normal Cardiovascular: normal S-1 and S-2 and regular rate and rhythm Respiratory: normal respiratory Musculoskeletal: no peripheral edema Skin: no stigmata of neurocutaneous disease noted and normal and intact Eyes: extraocular muscles intact (EOMI) NEUROLOGIC EXAMINATION: Mental status: Alert and interactive Oriented to person Speech very difficult to understand Cranial Nerves right sided nasolabial fold Reflexes: Deep tendon reflexes were brisk Coordination: finger to nose with dysmetria Gait/Stance: Posture very unsteady with standing and balance issues 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
[2021-04-19] MEDS ORDERED: LORazepam 0.5 MG TAB PO STA (21:56)
[2021-04-20] MEDS: CARBAMIDE PEROXIDE 6.5% 15 ML BTL OT SCH ×3 (00:48→13:21)
[2021-04-20 06:15] LABS: Eosinophils # (auto) 0.01 K/uL (0-0.5); Eosinophils % (auto) 0.1 %; Hemoglobin 13.2 g/dL (12.0-16.0); Immature Granulocytes # (auto) 0.03 K/uL (0.00-0.02); Immature Granulocytes % (auto) 0.2 %; Lymphocytes # (auto) 2.46 K/uL (1.2-3.4); Lymphocytes % (auto) 17.9 %; Mean Corpuscular Hemoglobin 31.9 pg (25-34); Mean Corpuscular Hgb Conc 33.8 g/dL (32-36); Mean Corpuscular Volume 94.2 fL (80-100); Mean Platelet Volume 10.3 fL (7.4-10.4); Monocytes # (auto) 0.95 K/uL (0.11-0.59); Monocytes % (auto) 6.9 %; Neutrophils # (auto) 10.31 K/uL (1.4-6.5); Neutrophils % (auto) 74.9 %; Platelet Count 286 K/uL (130-400); RDW Coefficient of Variation 14.5 % (11.5-14.5); RDW Standard Deviation 49.8 fL (36.4-46.3); Red Blood Count 4.14 M/uL (4.2-5.4); White Blood Count 13.76 K/uL (4.8-10.8)
[2021-04-20 06:40] LABS: BUN Creatinine Ratio 31.8 (10-20); Calcium 9.2 mg/dl (8.5-10.1); Creatinine Clr Calc Pharmacy 67.8 ml/min; Est GFR (African American) 126.3 ml/min; Potassium 3.7 mmol/L (3.5-5.1)
--- NOTE | 2021-04-20 07:41 | Magnetic Resonance Report ---
MR brain wo con CLINICAL HISTORY: Patient has a history of MS. Reported weakness and gait issues last week.. COMPARISON STUDY: CT brain from 04/16/2021 TECHNIQUE: Multiplanar multisequence images of the Brain were performed without IV contrast. Diffusi on weighted imaging and ADC mapping was also performed. FINDINGS: The study is limited by patient motion artifact despite sedation. Extra-axial space: There is no evidence for a subdural hematoma, There are no extra-axial fluid aron ections. Ventricles and cisterns: The ventricles are mildly dilated bilaterally. There is no evidence for mid line shift or mass effect. Parenchyma: There is no evidence for an acute hemorrhage or infarct. However, there are multiple foci of abnormal increased signal on T2 and FLAIR weighted sequences with the largest being in the lisa o n the left measuring at least 2.4 x 1.4 cm. The findings do not have the appearance of infarcts on d iffusion-weighted imaging. These findings are most characteristic of MS plaques or other demyelinatin g process. If indicated clinically, follow-up MRI with contrast could be obtained for further evaluat ion. The sulci and gyri appear normal without effacement. The midline structures are unremarkable. Th e posterior fossa structures appear normal. There is no evidence for mass lesion. Osseous structures: The paranasal sinuses are well aerated. The mastoid air cells are well aerated. Soft tissues: No focal soft tissue abnormalities are identified. IMPRESSION: 1. Numerous foci of abnormal signal on T2 and FLAIR weighted sequences most characteristic of a demye linating process with multiple sclerosis being the main differential diagnosis. 2. The largest lesion is within the lisa on the left. 3. There is no evidence for an acute infarct or cerebral edema. ACT 112: Negative or not required by law. Electronically signed by: Mike Hernandez M.D. 04/20/2021 7:40 AM
[2021-04-20] MEDS: CYANOCOBALAMIN (B-12) 100 MCG TABLET PO SCH (09:00)
[2021-04-20] MEDS: methylPREDNISolone 1,000 MG in DEXTROSE 5% 250 ML IV SCH (09:05)
--- NOTE | 2021-04-20 14:14 | Neurology Consultation ---
Date of Consultation April 20, 2021 Assessment & Plan (1) Multiple sclerosis: 1. continue methpredinsone 1g IV x 5 days 2. MRI brain with and without for any new lesions- has been refusing but now agrees to imaging 3. PT/OT for discharge needs 4. psychiatry for any recommendations- unable to full assess due to hearing issues 5. social issues will need a home assessment for safety issues. should not be living alone at this point 6. TSH low .093 need follow up with T3/4 free T4 .69 T3 pending 7. outpatient should follow through with restart of Tysabri and follow up scheduled with Dr Hodge will sign off for now but will chart check for imaging- ok to discharge when medically stable (2) Weakness generalized: 1. home PT if she will cooperate History of Present Illness Attending Physician: Boris Escalera MD Allergies Allergy/AdvReac Type Severity Reaction Status Date / Time amoxicillin Allergy Intermediate Facial Verified 04/16/21 17:09 swelling Bactrim Allergy Intermediate hands numb Verified 09/19/15 15:27 clavulanic acid Allergy Intermediate Facial Verified 04/16/21 17:09 swelling Sulfa (Sulfonamide Allergy Intermediate lips swell Verified 04/16/21 17:09 Antibiotics) sulfamethoxazole Allergy Intermediate hands numb Verified 04/16/21 17:09 trimethoprim Allergy Intermediate hands numb Verified 04/16/21 17:09 cefuroxime Allergy Unknown Hands-numbness Verified 04/16/21 17:09 and swelling azithromycin Allergy Swelling Verified 04/16/21 17:09 of Lip/Tongue/Throat Home Medications Medication Instructions Recorded Confirmed Type ibuprofen 200 mg tablet (Advil) 400 mg PO Q6H PRN 04/16/21 04/16/21 History Patient History Medical History Multiple sclerosis Family History Other Family history non-contributory Social History Smoking Status: Current every day smoker Do You Dip or Chew Tobacco: No; Tobacco Cessation Education Requested by Patient: No Hx Alcohol Use: No Hx Substance Use: No Preferred Language: Lao Communication Ability: Impaired Commodity Specialist Required: No Beliefs That Will Affect Care: None Current Living Situation: Parent Feels Safe at Home: Yes Safety Concerns: Feels Safe At This Time Assistive Devices: None Review of Systems Review of Systems: difficult to communicate due to hearing loss Physical Exam Physical Exam: Physical Exam: Constitutional: appearance very thin, unkempt Ears, Nose, Mouth and Throat: mucous membranes moist, no injection and skin normal, eyes normal Cardiovascular: normal S-1 and S-2 and regular rate and rhythm Respiratory: normal respiratory Musculoskeletal: no peripheral edema Skin: no stigmata of neurocutaneous disease noted and normal and intact Eyes: extraocular muscles intact (EOMI) NEUROLOGIC EXAMINATION: Mental status: Alert and interactive Oriented to person Speech very difficult to understand Cranial Nerves right sided nasolabial fold Reflexes: Deep tendon reflexes were brisk Coordination: finger to nose with dysmetria Gait/Stance: Posture very unsteady with standing and balance issues 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
--- NOTE | 2021-04-20 14:17 | Neurology Progress Note ---
Date of Service April 20, 2021 Assessment & Plan (1) Multiple sclerosis: Plan: 1. continue methpredinsone 1g IV x 5 days 2. MRI brain with and without for any new lesions- new lisa lesion likely causing voice issues. 3. PT/OT for discharge needs 4. psychiatry for any recommendations- unable to fully assess due to hearing issues- follow up out patient 5. social issues will need a home assessment for safety issues. should not be living alone at this point- mom and step mom are going to share caring for her at their homes 6. TSH low .093 need follow up with T3/4 free T4 .69 T3 low-64- repeat TSH in 1 week 7. outpatient should follow through with restart of Tysabri or other disease motifying medication and follow up scheduled with Dr Hodge 8. will need appointment with ENT outpatient 9. Mammo gram as outpatient mom has history of breast CA- PCP should follow. ok to discharge from neurology stand point will be available for any further needs or concerns. (2) Weakness generalized: Plan: 1. home PT if she will cooperate Admission and Anticipated Discharge Date Admission Date: April 16, 2021 Supervising Physician Co-Signing Physician Notes I have seen and discussed above patient with Dr Samara Wilburn, neurology Patient seen and examined. MRI of the brain shows an expansile lesion of the left lisa that was not present on imaging 3 to 4 weeks ago. Patient did not cooperate to receive contrast. It does appear to be in the region of the left root entry zone for the 8th nerve. Possibly the seventh as well. Patient completed her fifth day of IV Solu-Medrol today. On exam she is a little better able to hear her speech is a little less nasally dysarthric. She has next seventh component of the left blink reflex. She is basically able to to close the eye or nearly close the left eye brow elevation remains symmetric. No GIOVANNY is noted. No nystagmus is noted in the extremes of gaze. Impression relapsing progressive multiple sclerosis. Okay to discharge to family. Would not recommend that the patient be alone. The patient should have a the previously mentioned oral prednisone taper. I have reached out to Dr. Escalera because of the mildly poor left eye closure I recommend sterile ophthalmic ointment at night in the left eye and if the eye is closing plastic tape on the diagonal and using of eyedrops during the day. In general multiple sclerosis does not affect hearing although this is so close to the 8th nerve complex that is possible at least that has affected hearing in the left ear. Patient should be referred to ENT as an outpatient for evaluation of hearing and seeing if the earwax is adequately removed. Long-term management basis I think it is possible that Ocker this would be a better medication for her as after the initial 2 treatments it is every 6 months. This patient has had issues with compliance. The decision regarding Tysabri or Ocrevus can be made as an outpatient when she sees multiple sclerosis neurology. She has no personal history of breast cancer but her mother had breast cancer. A baseline mammography will need to be obtained and then followed regularly. Samara Larson Rachana is a 40 year old female who has been in the past by Dr. Villafana in our office most recently 03/31/2021. She had multiple sclerosis since she was a teenager and presented with some distal tingling involving the left leg and found to have extensive spinal cord lesions and brain lesions. She was intermittently not living in the area and Dr. Villafana believes that in the past, she has been on Betaseron and possibly Copaxone, but her disease continued to progress. She was placed on Tysabri about 10 years ago, which seemed to stabilize her to some degree, although after about 5 years, she had a flare of activity and there was some concern about PML. She was seen at [facility] at that time for imaging studies, CSF studies were negative for PML and is negative for the JUAN FRANCISCO virus.She lives alone in [place], but her stepmother has been involved in her care. The Tysabri infusions were increased in interval because of concern about long-term consequences and at times she was erratic in showing up for infusions and having blood work but doing fairly well. During Dr Villafana visit she was described as hypomanic, distractible and humming. there was anMRI of the brain with and without contrast on 03/18; this showed extensive demyelinating plaques throughout the supratentorial white matter and brainstem consistent with multiple sclerosis. The overall burden of disease was increased throughout the brainstem since 2015 when she was last imaged. Her MRI of the cervical spine shows considering differences in slice selection and technique and motion degradation, multiple ill-defined intramedullary T2/STIR hyperintense foci represented, chronic demyelinating plaques are overall unchanged with the most conspicuous being at C1 and C2. She was then rescheduled her for [place], and was scheduling an appointment with Dr. Hodge to advise further on disease-modifying therapy. They found her to be much impaired over the weekend, but leading up to that, she had been increasingly dysarthric for about 6 months and having increasing difficulty with cognition. She has had a marked decline in hearing, which is being attributed to her ears being occluded with cerumen. Her step mom is in the room and the plan is to take her home and she will live with either mom or step mom. She is consenting to the MRI but it has not been done yet. She worked with PT to day and walked down the wharton with them but was every unsteady but did use the walker. She is still having hearing issues and wants to go home. she had an MRI last night but did not tolerate it well. Mom is in the room. She will be living with her and will have help from the step mom to care for her. + hearing issues, and balance issues Review of Systems Review of Systems: All systems reviewed & are unremarkable except as noted in Subjective Physical Exam Physical Exam: Physical Exam: Constitutional: appearance very thin, unkempt, very [place] uses paper for questions Ears, Nose, Mouth and Throat: mucous membranes moist, no injection and skin normal, eyes normal Cardiovascular: normal S-1 and S-2 and regular rate and rhythm Respiratory: normal respiratory Musculoskeletal: no peripheral edema Skin: no stigmata of neurocutaneous disease noted and normal and intact Eyes: extraocular muscles intact (EOMI) NEUROLOGIC EXAMINATION: Mental status: Alert and interactive Oriented to person Speech very difficult to understand Cranial Nerves right sided nasolabial fold Reflexes: Deep tendon reflexes were brisk Coordination: finger to nose with dysmetria Gait/Stance: Posture very unsteady with standing and balance issues 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 triceps 4/5 hip flex 4+/5 left 4/5 right Results & Data ([facility]) Vital Signs (Past 12 Hours) Vital Signs Temp Pulse Resp BP Pulse Ox 04/20/21 07:41 36.7 C 80 18 113/78 96 Laboratory Results Abnormal lab results 04/19/21 04/20/21 04/20/21 Range/Units 08:23 05:44 05:44 WBC 13.76 H (4.8-10.8) K/uL RBC 4.14 L (4.2-5.4) M/uL RDW Std Deviation 49.8 H (36.4-46.3) fL Neut # (Auto) 10.31 H (1.4-6.5) K/uL Meagher # (Auto) 0.95 H (0.11-0.59) K/uL Immature Gran # (Auto) 0.03 H (0.00-0.02) K/uL Chloride 109 H (98-107) mmol/L BUN/Creatinine Ratio 31.8 H (10-20) Total T3 64 L (76-181) ng/dL Diagnostic Findings MRI brain without contrast-Numerous foci of abnormal signal on T2 and FLAIR weighted sequences most characteristic of a demyelinating process with multiple sclerosis being the main differential diagnosis. The largest lesion is within the lisa on the left.There is no evidence for an acute infarct or cerebral marsha a.
--- NOTE | 2021-04-20 16:55 | Hospitalist Progress Note ---
Date of Service April 20, 2021 Assessment & Plan (1) Multiple sclerosis: Plan: MS Progression Present on admission due to worsening weakness from MS progression CT head showed several white matter hypodensities. Case discussed with Dr. Crain on admission that recommended to start on IV methylprednisone 1000 mg daily for 5 days Continue IV steroid 1000mg x5 days, completed course today MRI of the brain pending - new lisa lesion likely causing voice issues TSH low .093 need follow up with T3/4 free T4 .69 T3 low-64- repeat TSH in 1 week PT/OT - recommending rehab. Family leaning towards returning home with services - will discuss preferences Psychiatry for any recommendations- unable to fully assess due to hearing issues- follow up out patient Okay from neurology stand point for discharge UTI Urine cx grew staph species - Coag neg staph not saprophytic No urinary sx until earlier today with increased freqency and urgency Starting on nitrofurantoin 100mg BID x 5 day course Decrease hearing Function Wax in ears canal Will add debrox If no improvement, will need to get eval by ENT as OP Ambulatory dysfunction Due to MS exacerbation PT/OT - recommending SNF Fall precaution DVT prophylaxis SCD CODE status Full code Admission and Anticipated Discharge Date Admission Date: April 16, 2021 Supervising Physician Co-Signing Physician Notes Attending addendum The patient was seen and examined in medical floor She wants to go home and denies any significant symptoms Though she has been having some issues with voiding Urine culture has been growing coagulase-negative staph not saprophytic On examination Hemodynamically stable with blood pressure on the lower side Chest-clear Heart-S1-S2, regular Abdomen-benign Extremities-negative for any edema Her labs noted Urine culture is growing coagulase-negative staph not saprophytic Sensitive to Macrobid and oxacillin and also Bactrim We'll try dicloxacillin Agree with assessment and plan as outlined above by BANDAR Lal DR Subjective Seen and examined in 388 -2. Patient ambulated with PT, still very unsteady on her feet. Denies any new complaints overnight. Experiencing increased urinary frequency but not much output. Denies any fever, chills, headache, lightheadedness, chest pain, shortness of breath, nausea, vomiting, abdominal pain,diarrhea or constipation. Review of Systems 2 Review of Systems: At least ten systems reviewed and negative except as noted in the HPI. Physical Exam Physical Exam: Gen: Thin, frail, hard of hearing, female, cachectic, alert and oriented HEENT: Normocephalic, atraumatic, R temporal wasting, conjunctivae moist, sclerae anicteric, mucous membranes moist Lung: Clear to Auscultation bilaterally, no wheezes/rales/rhonchi Heart: Regular rate, regular rhythm, no murmurs, rubs, or gallops Abdomen: Soft, NT, ND +BS x 4 Extremities: No edema Skin: Warm, no rash, negative turgor. Results & Data Results & Data ([facility]) Vital Signs (Past 12 Hours) Vital Signs Temp Pulse Resp BP BP Pulse Ox 04/20/21 15:22 36.8 C 72 16 86/51 L 97 04/20/21 07:41 36.7 C 80 18 113/78 96 Laboratory Results Short CBC 04/20/21 Range/Units 05:44 WBC 13.76 H (4.8-10.8) K/uL Hgb 13.2 (12.0-16.0) g/dL Hct 39.0 (37-47) % Plt Count 286 (130-400) K/uL BMP 04/20/21 05:44 Sodium 143 Potassium 3.7 Chloride 109 H Carbon Dioxide 28 BUN 21 Creatinine 0.66 Glucose 93 Calcium 9.2 Diagnostic Findings Chest X-Ray 04/16/21 15:22 XR chest 1V portable CLINICAL HISTORY: Atypical chest pain. COMPARISON STUDY: Chest radiograph September 13, 2015. FINDINGS: Lung volumes are normal. Lungs are clear. There is no pneumothorax or pleural effusion. Cardiac size is normal. Mediastinal contours are normal. There is no evidence for pulmonary edema. IMPRESSION: No acute cardiopulmonary findings. ACT 112: Negative or not required by law. Electronically signed by: Isael Lucio M.D. 04/16/2021 4:[address] 04/16/21 16:10 CT OF THE HEAD WITHOUT CONTRAST CLINICAL HISTORY: Weakness. Multiple sclerosis. COMPARISON STUDY: No previous studies for comparison. CT DOSE: 773.57 mGy.cm TECHNIQUE: Helical axial images of the head were obtained without IV contrast. Automated exposure control was utilized for the study. A dose lowering technique was utilized adhering to the principles of ALARA. FINDINGS: No acute intracranial hemorrhage, midline shift or mass effect is present. Note is made of several periventricular hypodensities, the most prominent of which is within the left frontal lobe. The ventricular system is unremarkable. The basal cisterns are patent. No extra-axial collections are present. There are no findings to suggest acute dural sinus thrombosis or acute territorial infarct. No significant calvarial abnormalities are present. Visualized portions of the sinuses and mastoid air cells are clear. IMPRESSION: 1. No acute intracranial findings. 2. Several white matter hypodensities. Although nonspecific, these favor previous sites of demyelination given the clinical history. ACT 112: Negative or not required by law. Electronically signed by: Isael Lucio M.D. 04/16/2021 4:55 PM Brain MRI 04/19/21 14:36 MR brain wo con CLINICAL HISTORY: Patient has a history of MS. Reported weakness and gait issues last week.. COMPARISON STUDY: CT brain from 04/16/2021 TECHNIQUE: Multiplanar multisequence images of the Brain were performed without IV contrast. Diffusion weighted imaging and ADC mapping was also performed. FINDINGS: The study is limited by patient motion artifact despite sedation. Extra-axial space: There is no evidence for a subdural hematoma, There are no extra-axial fluid collections. Ventricles and cisterns: The ventricles are mildly dilated bilaterally. There is no evidence for midline shift or mass effect. Parenchyma: There is no evidence for an acute hemorrhage or infarct. However, there are multiple foci of abnormal increased signal on T2 and FLAIR weighted sequences with the largest being in the lisa on the left measuring at least 2.4 x 1.4 cm. The findings do not have the appearance of infarcts on diffusion- weighted imaging. These findings are most characteristic of MS plaques or other demyelinating process. If indicated clinically, follow-up MRI with contrast could be obtained for further evaluation. The sulci and gyri appear normal without effacement. The midline structures are unremarkable. The posterior fossa structures appear normal. There is no evidence for mass lesion. Osseous structures: The paranasal sinuses are well aerated. The mastoid air cells are well aerated. Soft tissues: No focal soft tissue abnormalities are identified. IMPRESSION: 1. Numerous foci of abnormal signal on T2 and FLAIR weighted sequences most characteristic of a demyelinating process with multiple sclerosis being the main differential diagnosis. 2. The largest lesion is within the lisa on the left. 3. There is no evidence for an acute infarct or cerebral edema. ACT 112: Negative or not required by law. Electronically signed by: Mike Hernandez M.D. 04/20/2021 7:40 AM
[2021-04-20] MEDS ORDERED: SODIUM CHLORIDE 0.9% 1000ML 1,000 ML IV SCH (17:00)
[2021-04-20] MEDS: NITROFURANTOIN MONOHYDRATE 100 MG CAP PO SCH (17:35)
[2021-04-21 06:53] LABS: Hematocrit (blood only) 37.1 % (37-47); Hemoglobin 12.6 g/dL (12.0-16.0); Mean Corpuscular Hemoglobin 31.3 pg (25-34); Mean Corpuscular Volume 92.1 fL (80-100); Platelet Count 260 K/uL (130-400); RDW Coefficient of Variation 14.3 % (11.5-14.5); RDW Standard Deviation 48.1 fL (36.4-46.3); Red Blood Count 4.03 M/uL (4.2-5.4); White Blood Count 13.08 K/uL (4.8-10.8)
[2021-04-21 07:19] LABS: BUN Creatinine Ratio 33.3 (10-20); Creatinine Clr Calc Pharmacy 74.6 ml/min; Est GFR (African American) 130.3 ml/min; Est GFR (Non-African American) 112.4 ml/min; Potassium 3.4 mmol/L (3.5-5.1)
[2021-04-21] MEDS: NITROFURANTOIN MONOHYDRATE 100 MG CAP PO SCH (09:50)
[2021-04-21] MEDS: CYANOCOBALAMIN (B-12) 100 MCG TABLET PO SCH (09:50)
[2021-04-21] MEDS ORDERED: predniSONE 20 MG TAB PO STA (13:17)
--- NOTE | 2021-04-21 14:04 | Discharge Summary ---
Date of Service April 21, 2021 Admission HPI Per Admitting Provider 40 years old with past medical history of multiple sclerosis was brought to the ER due to worsening weakness and ambulatory dysfunction. History obtained mostly from the family due to patient is very hard of hearing. For the past 2 weeks family said patient has been very weak. She fell couple times due to ambulatory dysfunction. Her hearing function has been declining lately as per family. Patient saw neurology Dr. Villafana on 03/[address] Villafana was planning to start on Tysabri injection tomorrow for the MS progression. Denies any chest pain, palpitation, numbness, dizziness, shortness of breath. Admission Exam Per Admitting Provider General- cachectic Head- atraumatic Eyes- PERRL, EOMI, ENT- +decrease hearing function Neck- supple, no JVD Lungs- clear to auscultation Heart- regular rhythm; no murmur Abdomen- normal bowel sounds, soft, nontender Extremities- no calf tenderness Neuro- alert, oriented; PERRL, EOMI; no facial palsy; no dysarthria Skin- warm & dry Principal Diagnosis Multiple sclerosis progression Discharge Exam Gen: Thin, frail, hard of hearing, female, cachectic, alert and oriented HEENT: Normocephalic, atraumatic, R temporal wasting, conjunctivae moist, sclerae anicteric, mucous membranes moist Lung: Clear to Auscultation bilaterally, no wheezes/rales/rhonchi Heart: Regular rate, regular rhythm, no murmurs, rubs, or gallops Abdomen: Soft, NT, ND +BS x 4 Extremities: No edema Skin: Warm, no rash, negative turgor. Discharge Data Allergies Allergy/AdvReac Type Severity Reaction Status Date / Time amoxicillin Allergy Intermediate Facial Verified 04/16/21 17:09 swelling Bactrim Allergy Intermediate hands numb Verified 09/19/15 15:27 clavulanic acid Allergy Intermediate Facial Verified 04/16/21 17:09 swelling Sulfa (Sulfonamide Allergy Intermediate lips swell Verified 04/16/21 17:09 Antibiotics) sulfamethoxazole Allergy Intermediate hands numb Verified 04/16/21 17:09 trimethoprim Allergy Intermediate hands numb Verified 04/16/21 17:09 cefuroxime Allergy Unknown Hands-numbness Verified 04/16/21 17:09 and swelling azithromycin Allergy Swelling Verified 04/16/21 17:09 of Lip/Tongue/Throat Consultations 04/16/21 17:53 ED Decision to Admit Stat 04/16/21 21:16 Consult Neurology Routine 04/18/21 11:57 Consult Psychiatry Routine Ordered Studies 04/16/21 16:10 CT head/brain wo con Stat 04/19/21 14:36 MR brain wo con Urgent Hospital Course (1) Multiple sclerosis: (2) Weakness generalized: (3) Abnormal TSH: (4) UTI (urinary tract infection), uncomplicated: (5) Adjustment disorder with anxiety: This is a 40 year old F with PMH of multiple sclerosis was brought to the ER due to worsening weakness and ambulatory dysfunction. CT head showed several white matter hypodensities and Brain MRI revealed new lisa lesionthat is likely causing voice issues, per neurology. Was treated with 5 day course of IV methylprednisone 1000 mg daily for 5 days and then transitioned to PO prednisone taper today. Patient to follow up with Dr. Villafana in clinic. Evaluated by PT/OT for worsening ambulatory instability and was recommended to return home with 24h care vs. rehab placement. Family elected for return home and understand significant care needs. Case management assisted with setting up home health. During admission, patient was found to have low TSH. Needs follow up with T3/4 free T4 .69 T3 low-64. Plan to repeat TSH in 1 week. Also became symptomatic with UTI during admission with urine culture growing Coag neg staph not saprophytic. Prescribed 5 day course of nitrofurantoin 100mg twice daily. Psychiatry evaluated patient during admission for possible adjustment disorder but due to significant hearing impairment, suggested follow up in out-patient setting with psychiatry. Has been more hard of hearing per family with wax build up. Received Debrox drops for 4 days for wax in ear canal. Follow up with PCP for ear flushing next, consider possible outpatient ENT evaluation. Discussed plan with mother Cherie on the phone today. Patient hemodynamically stable for discharge home. Total Time Total Time Spent Total Time Spent (In Minutes): 50 Discharge Plan Discharge Items Patient Disposition: Home - Home Health Services Reason For Visit: MS FLARE UPS Discharge Diagnosis: MS progression Activity: Resume your previous activity Non-emergency contact: Primary Care Provider and Neurologist Call non-emergency contact if: you have any medication questions, your symptoms worsen and you have a fever Follow-up/Referrals: Mary Ann Loredo MD [Hospitalist] - (Date & Time 04/26/2021 11:00 AM Provider Mary Ann Loredo MD Department General Internal Medicine [facility] ) Diet: Regular Addtl Attending Provider Instructions: You were admitted for worsening weakness from MS progression MRI of brain reveals new lisa lesion Per neurology recommendation, you received high dose IV steroids x 5 days and have been transitioned to prednisone taper PT/OT recommending home with 24h care vs. rehab placement due to ambulatory instability Family comfortable providing 24h care; case management arranging for home health TSH low .093 need follow up with T3/4 free T4 .69 T3 low-64. Will need a repeat TSH in 1 week Found to have UTI during admission with urine culture growing Coag neg staph not saprophytic Complete course of nitrofurantoin 100mg twice daily Decreased hearing function noted during admission. Received Debrox drops for 4 days for wax in ear canal. Follow up with PCP for ear flushing, consider possible outpatient ENT evaluation Would also benefit from out-patient psychiatry evaluation for possible adjustment disorder MEDICATION CHANGES: Continue Bactrim 100mg twice daily until antibiotic course complete Continue prednisone taper at discharge: 60mg tomorrow, 40mg x 2 days, 30mg x 2 days, 20mg x 2 days, 10mg x 2 days RECOMMENDATIONS FOR FOLLOW-UP: Follow up with Dr. Loredo on 04/26/2021 at 11:00AM Follow up with Dr. Villafana and [place] [facility] as scheduled OTHER INSTRUCTIONS: Seek medical attention if you have: * temperature above 101 * chest pain or trouble breathing * abdominal pain, nausea, vomiting * diarrhea, dark stools or bloody stools * any unanswered questions or concerns Call 911 if symptoms are severe. Please take good care of yourself. Call if you have any questions or problems. You can reach a [facility] hospitalist on duty at [facility] 24 hours a day by calling [phone]. Jami Guzman PA-C [facility] Hospitalist Pending Studies at Discharge: No Stand-Alone Forms: My [facility], Smoking Cessation Medications and DC Order Prescriptions: New nitrofurantoin monohyd/m-cryst 100 mg Capsule 100 mg PO BIDM Qty: 8 RF: 0 prednisone 10 mg tablet 10 mg PO UD Qty: 26 RF: 0 Continued ibuprofen [Advil] 200 mg Tablet 400 mg PO Q6H PRN (Reason: fever/pain) RF: 0 Discharge Orders: Discharge Order (Routine); Ordered 04/21/21 Ordered By: Jami Guzman Admission Data Admit Date/Time: 04/16/21 19:39 Attending Provider: Boris Escalera Admit Provider: Isela Pappas Primary Care Provider: Gladys Ortiz Other Providers: Isela Pappas ; Ross Crain ; Paula Mensah ; Sophie Lee ; Esther Gottlieb ; Sarbjit Wei ; Jami Guzman ; [facility],Home Healthcare Other Interventions: Discharge Summary Assessment (RN) Last Done: 04/21/21 14:03 Supervising Physician Co-Signing Physician Notes Attending addendum: The patient was seen and examined in medical floor She denies any symptoms and wants to go home today She was communicated through writing and she was applying verbally with response She understood everything that I was trying to find out and she is going to take every precautions to avoid fall at home She will be discharged home this afternoon On examination Remains hemodynamically stable General lean and thin Has been getting prednisone as an appetite stimulant and treatment for MS flare Her labs and imaging studies reviewed Has multiple sclerosis with ambulatory dysfunction and is status post high-dose intravenous Solu-Medrol Was discharged home this afternoon Agree with assessment and plan as mentioned above by BANDAR Lal Dr
== END 2021-04-21 14:50 | disposition home health service (06) | DRG 59 ==
LOC: ED 15:05 → 3N 19:39 → SUATTDRO 19:39 → 3N 20:56

== ENCOUNTER 2022-06-03 13:00 | Inpatient (IN) ==
--- NOTE | 2022-06-03 14:38 | XRay Report ---
LUMBAR SPINE 5 VIEWS CLINICAL HISTORY: Fall. Right-sided low back pain. FINDINGS: 5 views of the lumbar spine are obtained. No prior studies are available for comparison at the time of dictation. The skeletal structures are well mineralized. There is no radiographic eviden ce of fracture or malalignment. Vertebral body height and alignment are maintained. The transverse a nd spinous processes are intact. There is no evidence of spondylolysis. The intervertebral disc space s are well-maintained. Suspect a nondisplaced fracture of the sacrum at S1-S2. The remainder of the v isualized bony pelvis appears intact. There is a nonobstructed abdominal bowel gas pattern. Phlebolit hs are scattered through the pelvis. IMPRESSION: 1. There is no radiographic evidence of acute fracture or malalignment involving the lumbar spine. 2. Suspect a nondisplaced sacral fracture at S1-S2. ACT 112: Negative or not required by law. Electronically signed by: Manuel Smith M.D. 06/03/2022 2:36 PM
--- NOTE | 2022-06-03 14:39 | XRay Report ---
SINGLE VIEW PELVIS CLINICAL HISTORY: Fall. Pelvic pain. FINDINGS: An AP view of the pelvis is obtained. No prior studies are available for comparison at the time of dictation. The skeletal structures are well mineralized. There is no radiographic evidence of acute fracture involving the hips or bony pelvis. The joint spaces of the hips are maintained. The s acroiliac joints are normal. The overlying soft tissues are within normal limits. Phleboliths are see n throughout the pelvis. IMPRESSION: No acute bony abnormality is identified. Electronically signed by: Manuel Smith M.D. 06/03/2022 2:37 PM
[2022-06-03] MEDS ORDERED: oxyCODONE HCL IR 5 MG TAB (IMMEDIATE RELEASE) PO STA (15:06)
--- NOTE | 2022-06-03 15:44 | CT Scan Report ---
CT SCAN OF THE PELVIS WITHOUT IV CONTRAST CLINICAL HISTORY: Fall. Pelvic pain. Abnormal radiographs. COMPARISON STUDY: Radiographs of the lumbar spine and pelvis performed the same day 06/03/2022. TECHNIQUE: CT scan of the pelvis is performed from the pelvic inlet to the proximal femora. Images a re reviewed in the axial, sagittal, and coronal planes. IV contrast was not administered for this exa mination. A dose lowering technique was utilized adhering to the principles of ALARA. CT DOSE: 264.78 mGy.cm FINDINGS: The skeletal structures are well-mineralized. CT confirms the presence of a nondisplaced fr acture through the superior aspect of S2. This is best seen on sagittal image #40. A vertical fractur e is also identified in the left sacral ala, best seen on axial image #173. Trace hemorrhage is seen around the fracture sites. The remainder of the bony pelvis is intact. The proximal femora are mainta ined. The joint spaces of the hips are preserved. There is mild sclerosis of the sacroiliac joints. N o lytic or blastic lesion is seen. The regional musculature is normal in appearance. The bladder, lesley eun, and adnexa are normal as visualized. No free fluid is seen in the cul-de-sac. There is no pelvic sidewall or inguinal lymphadenopathy. Imaged portions of the small bowel and colon are normal in harmony iber. IMPRESSION: 1. CT confirms a sacral fracture through the superior aspect of S2. 2. There is also a vertically oriented fracture of the left sacral ala. 3. Trace hemorrhage is seen around the fracture sites. No large hematoma is identified. 4. No additional fracture is seen. ACT 112: Negative or not required by law. Electronically signed by: Manuel Smith M.D. 06/03/2022 3:41 PM
[2022-06-03] MEDS: oxyCODONE IR HOME PACK PO ONE ×2 (16:37→17:16)
[2022-06-03] MEDS ORDERED: NICOTINE 14 MG/24 HR PATCH TD STA (17:23)
--- NOTE | 2022-06-03 17:26 | History & Physical Report ---
Date of Service June 03, 2022 Assessment & Plan (1) Fall: (2) Closed sacral fracture: (3) Ambulatory dysfunction: (4) Multiple sclerosis: Plan This is a 41-year-old female with significant past medical history of multiple sclerosis, cerebellar ataxia, internuclear ophthalmoplegia, CHEL, ambulatory dysfunction, depression and tobacco use disorder who presents ED secondary to fall that occurred 2 days ago and subsequent pain. Fall Ambulatory dysfunction S2 fracture/left sacral ala fracture Admit to medical Pain control with scheduled Tylenol, ibuprofen for mild pain, oxycodone for moderate to severe pain PT/OT - high fall risk, recommend inpt rehab, continue PT/OT while hosp At baseline patient has a walker, but typically does not use Will need case management to determine ability to return home and need Consult orthopedics -Dr. Jalloh discussed with ER PA who stated conservative management Multiple sclerosis Currently receives rituximab therapy every 6mo Mostly at baseline although struggling with worsening bilateral lower extremity tremors and incontinence will consult neurology for lower extremity tremors Tobacco abuse Encourage smoking cessation Nicotine patch Underweight, BMI 14.7 Cachexia Consult dietitian Abnormal UA/Possible UTI pt with multiple allergies previous cx grew coag neg staph given allergy to PCN/CEPH will start with IV aztreonam await culture DVT ppx: SCDS for now, monitor hgb given trace bleeding around fx but no hematoma, if stable consider chemical prophylaxis Dispo: med/surg, needs PT/OT, pain control, CM to determine needs FULL CODE PCP: Gertrude A total of 45 minutes was spent with greater than 50% of that time personally viewing all current laboratory work and diagnostic imaging studies obtained in the ED. Additionally, I was able to view the patients past medication reconciliation and history with direct visualization in the patients chart. Included in the time above, a portion of that time was spent assessing the patient while discussing and collaborating with specialists, if necessary, and making medical decision making on treatment plan. All of the above was collaborated with Dr. Mcfarland. Please see addendum for further details. History of Present Illness Chief Complaint: Fall 2 days ago with low back pain. Primary Care Provider: Mary Ann Loredo MD This is a 41-year-old female with significant past medical history of multiple sclerosis, cerebellar ataxia, internuclear ophthalmoplegia, CHEL, ambulatory dysfunction, depression and tobacco use disorder who presents ED secondary to fall that occurred 2 days ago and subsequent pain. Patient's mother is at bedside. She was walking up the steps to get to her house and was carrying cigarettes in 1 hand and a water bottle and the other. Her mother went to open her front door and when she turned around patient was stumbling backwards and fell on her left side. Since the fall she has had significant low back, buttock and left-sided pain. This is caused her the inability to ambulate. She was brought to ED today with mother at bedside due to concern for ambulatory dysfunction and pain. She denies any numbness or tingling to lower extremities. She has chronic bladder urgency and incontinence and this is unchanged. She denies any bowel incontinence. She has otherwise been in her normal state of health. She does have MS and follows [facility] neurology. She is currently on Rituxan every 6 months. Her last dose was May 21. She denies any fever, chills, sweats, lightheadedness, dizziness, chest pain, shortness with, cough, nausea, vomiting, abdominal pain.In ED patient was found to have sacral fracture to the superior aspect of S2 and a vertically oriented fracture of the left sacral omid. Trace hemorrhage is seen around the fracture sites but no large hematoma is identified.She received oxycodone for pain control and this seemed to help. Currently pain is 7 out of 10. No other falls than Saturday. Typically uses walker at baseline but hasn't been using. Lives alone. Allergies Allergy/AdvReac Type Severity Reaction Status Date / Time azithromycin Allergy Severe Swelling Verified 06/03/22 17:06 of Lip/Tongue/Throat pregabalin [From Lyrica] Allergy Severe EDEMA Verified 06/03/22 17:06 FACE, LIPS AND TONGUE amoxicillin Allergy Intermediate Facial Verified 06/03/22 17:06 swelling clavulanic acid Allergy Intermediate Facial Verified 06/03/22 17:06 swelling Sulfa (Sulfonamide Allergy Intermediate lips swell Verified 06/03/22 17:06 Antibiotics) sulfamethoxazole Allergy Intermediate hands numb Verified 06/03/22 17:06 trimethoprim Allergy Intermediate hands numb Verified 06/03/22 17:06 cefuroxime AdvReac Intermediate Hands-numbness Verified 06/03/22 17:06 and swelling Home Medications Medication Instructions Recorded Confirmed Type ibuprofen 200 mg tablet (Advil) 400 mg PO Q6H PRN Pain 04/16/21 06/03/22 History citalopram 40 mg tablet 40 mg PO QAM 06/03/22 06/03/22 History lorazepam 0.5 mg tablet 0.5 mg PO DIRECTED PRN PRIOR TO 06/03/22 06/03/22 History MRI PROCEDURE medroxyprogesterone 150 mg/mL 150 mg IM .[id number] 06/03/22 06/03/22 History intramuscular suspension oxycodone 5 mg tablet 5 mg PO Q6H PRN pain #12 tabs 06/03/22 Rx Past Med/Surg History Medical History Multiple sclerosis Surgical History Previous section x2 Family History Other Family history non-contributory Social History Smoking Status: Current every day smoker Second Hand Exposure: Yes; Do You Dip or Chew Tobacco: No; Tobacco Cessation Education Requested by Patient: No Hx Alcohol Use: No Hx Substance Use: No Preferred Language: Upper Sorbian Communication Ability: Effective Uptwister Tender Required: No Beliefs That Will Affect Care: None Current Living Situation: Alone Current Living Situation Comment: House Other Information That Helps Us Care for You: No Feels Safe at Home: Yes Safety Concerns: Feels Safe At This Time Assistive Devices: None Assistive Devices Comment: Suppose to get a walker Review of Systems Review of Systems: All systems reviewed & are unremarkable except as noted in HPI & below Physical Exam Physical Exam: Constitutional: WD/WN,Cachectic, female vitals as above, NAD, sitting up in bed, agitated due to being admitted, conversing easily Head: Normocephalic, Atraumatic Eyes: PERRL, conjunctivae normal, anicteric sclerae ENMT: external ear and nose normal, oropharynx normal dry membranes Neck: trachea midline, no thyromegaly normal visual inspection Respiratory: normal respiratory effort, lungs clear to auscultation, no wheeze, rales, rhonchi. Normal insp/exp effort, no accessory muscle use Cardiovascular: tachycardiac rate, regular rhythm, no murmur, no edema Vessels: no JVD or carotid bruit Chest: normal inspection of chest Abdomen: normal bowel sounds, soft, nontender, no hepatosplenomegaly Musculoskeletal: no cyanosis or clubbing, decreased ROM to LLE, inability to extend/hyperflex Skin: no rashes, warm and dry normal turgor Neurologic: PERRL, EOMI, accommodation nl, no face palsy, no dysarthria CN's II-XI intact bilaterally and moves all extremities Psychiatric: A+Ox3, euthymic affect Lymphatic: no cervical or axillary lymphadenopathy : deferred Results & Data Results & Data Vital Signs (Past 12 Hours) Vital Signs Temp Pulse Resp BP Pulse Ox O2 Del Method 06/03/22 13:04 36.8 C 133 H 18 103/70 98 Room Air Diagnostic Findings Lumbar Spine X-Ray 06/03/22 13:36 LUMBAR SPINE 5 VIEWS CLINICAL HISTORY: Fall. Right-sided low back pain. FINDINGS: 5 views of the lumbar spine are obtained. No prior studies are available for comparison at the time of dictation. The skeletal structures are well mineralized. There is no radiographic evidence of fracture or malalignment. Vertebral body height and alignment are maintained. The transverse and spinous processes are intact. There is no evidence of spondylolysis. The intervertebral disc spaces are well-maintained. Suspect a nondisplaced fracture of the sacrum at S1-S2. The remainder of the visualized bony pelvis appears intact. There is a nonobstructed abdominal bowel gas pattern. Phleboliths are scattered through the pelvis. IMPRESSION: 1. There is no radiographic evidence of acute fracture or malalignment involving the lumbar spine. 2. Suspect a nondisplaced sacral fracture at S1-S2. ACT 112: Negative or not required by law. Electronically signed by: Manuel Smith M.D. 06/03/2022 2:36 PM Pelvis X-Ray 06/03/22 13:37 SINGLE VIEW PELVIS CLINICAL HISTORY: Fall. Pelvic pain. FINDINGS: An AP view of the pelvis is obtained. No prior studies are available for comparison at the time of dictation. The skeletal structures are well mineralized. There is no radiographic evidence of acute fracture involving the hips or bony pelvis. The joint spaces of the hips are maintained. The sacroiliac joints are normal. The overlying soft tissues are within normal limits. Phleboliths are seen throughout the pelvis. IMPRESSION: No acute bony abnormality is identified. Electronically signed by: Manuel Smith M.D. 06/03/2022 2:[address] 06/03/22 14:56 CT SCAN OF THE PELVIS WITHOUT IV CONTRAST CLINICAL HISTORY: Fall. Pelvic pain. Abnormal radiographs. COMPARISON STUDY: Radiographs of the lumbar spine and pelvis performed the same day 06/03/2022. TECHNIQUE: CT scan of the pelvis is performed from the pelvic inlet to the proximal femora. Images are reviewed in the axial, sagittal, and coronal planes. IV contrast was not administered for this examination. A dose lowering technique was utilized adhering to the principles of ALARA. CT DOSE: 264.78 mGy.cm FINDINGS: The skeletal structures are well-mineralized. CT confirms the presence of a nondisplaced fracture through the superior aspect of S2. This is best seen on sagittal image #40. A vertical fracture is also identified in the left sacral ala, best seen on axial image #173. Trace hemorrhage is seen around the fracture sites. The remainder of the bony pelvis is intact. The proximal femora are maintained. The joint spaces of the hips are preserved. There is mild sclerosis of the sacroiliac joints. No lytic or blastic lesion is seen. The regional musculature is normal in appearance. The bladder, uterus, and adnexa are normal as visualized. No free fluid is seen in the cul-de-sac. There is no pelvic sidewall or inguinal lymphadenopathy. Imaged portions of the small bowel and colon are normal in caliber. IMPRESSION: 1. CT confirms a sacral fracture through the superior aspect of S2. 2. There is also a vertically oriented fracture of the left sacral ala. 3. Trace hemorrhage is seen around the fracture sites. No large hematoma is identified. 4. No additional fracture is seen. ACT 112: Negative or not required by law. Electronically signed by: Manuel Smith M.D. 06/03/2022 3:41 PM Medications Administered Medication List Discontinued Medications Nicotine (Nicotine 14 Mg/24 Hr Patch) 14 mg TD NOW STA Stop: 06/03/22 17:24 Last Admin: 06/03/22 17:35 Dose: 14 mg Documented By: Oxycodone HCl (Oxycodone Hcl Ir 5 Mg Tab (Immediate Release)) 5 mg PO NOW STA Stop: 06/03/22 15:07 Last Admin: 06/03/22 15:10 Dose: 5 mg Documented By: LONNIE Oxycodone HCl (Oxycodone Ir Home Pack) 1 each PO UD ONE Stop: 06/03/22 16:21 Last Admin: 06/03/22 17:16 Dose: Not Given Documented By: COVID-19 Results Results COVID-19 Adm Lab Results: RBC 4.80 M/uL (4.20-5.40) 06/05/22 WBC 8.20 K/ul (4.8-10.8) 06/05/22 Hgb 14.1 g/dl (12.0-16.0) 06/05/22 Hct 40.5 % (37.0-47.0) 06/05/22 Plt Count 280 K/uL (130-400) 06/05/22 Neutrophils (%) (Auto) 69.7 % 06/04/22 Lymphocytes (%) (Auto) 18.8 % 06/04/22 Monocytes # (Auto) 0.68 K/uL (0.11-0.59) H 06/04/22 Eosinophils # (Auto) 0.14 K/uL (0-0.50) 06/04/22 Immature Granulocyte % (Auto) 0.3 % 06/04/22 Neutrophils # (Auto) 5.32 K/uL (1.40-6.50) 06/04/22 Lymphocytes # (Auto) 1.44 K/uL (1.2-3.4) 06/04/22 Monocytes # (Auto) 0.68 K/uL (0.11-0.59) H 06/04/22 Eosinophils # (Auto) 0.14 K/uL (0-0.50) 06/04/22 Basophils # (Auto) 0.04 K/uL (0-0.2) 06/04/22 Immature Granulocyte # (Auto) 0.02 K/uL (0.01-0.20) 3 Na 136 mmol/L (136-145) 06/05/22 K 3.8 mmol/L (3.5-5.1) 06/05/22 Cl 105 mmol/L (98-107) 06/05/22 CO2 23 mmol/L (21-32) 06/05/22 Anion Gap 8 (3-11) 06/05/22 BUN 13 mg/dl (6-23) 06/05/22 Creatinine 0.46 mg/dl (0.6-1.2) L 06/05/22 BUN/Creatinine Ratio 28.3 (10-20) H 06/05/22 Glucose Level 83 mg/dl (70-99(Fasting)) 06/05/22 Ca 8.9 mg/dl (8.6-10.3) 06/05/22 Total Bilirubin 0.8 mg/dl (0.2-1.0) 06/04/22 AST/SGOT 13 U/L (13-39) 06/04/22 ALT/SGPT 11 U/L (7-52) 06/04/22 Alkaline Phosphatase 74 U/L (34-104) 06/04/22 Total Protein 6.6 gm/dl (6.0-8.3) 06/04/22 Albumin 4.0 gm/dl (3.4-5.0) 06/04/22 Globulin 2.6 gm/dl (2.5-4.0) 06/04/22 Albumin/Globulin Ratio 1.5 (0.9-2) 06/04/22 SARS-CoV-2, RNA, NAAT NEGATIVE (NEGATIVE) 06/03/22 Code Status & VTE Plan Code Status FULL CODE VTE Prophylaxis Plan VTE Prophylaxis will be ordered: Yes Supervising Physician Co-Signing Physician Notes Patient was seen and examined independently. Chart reviewed. Case discussed with JOSE MARIA
[2022-06-03] MEDS ORDERED: POLYETHYLENE (MIRALAX) 17 GM PACK PO PRN (19:16)
[2022-06-03] MEDS ORDERED: ALUMINUM/MAGNESIUM SUSP 30 ML UDC PO PRN (19:16)
[2022-06-03] MEDS ORDERED: ACETAMINOPHEN 325 MG TAB PO PRN (19:16)
[2022-06-03] MEDS ORDERED: ONDANSETRON INJ 2 MG/ML 2 ML VIAL IV PRN (19:16)
[2022-06-03] MEDS ORDERED: MAGNESIUM HYDROXIDE SUSP 30 ML UDC PO PRN (19:16)
[2022-06-03] MEDS: DOCUSATE SODIUM/SENNA 50/8.6MG TAB PO SCH (20:57)
[2022-06-03] MEDS: ACETAMINOPHEN 500 MG TAB PO SCH (20:57)
--- NOTE | 2022-06-03 21:04 | Emergency Department Note ---
ED Provider Note History of Present Illness Chief Complaint: Fall Stated Complaint: FALL, BACK PAIN, DIFFICULTY WALKING Time Seen by Provider: 06/03/22 13:14 Source: patient Mode of arrival: ambulatory Limitations: no limitations This patient is a 41-year-old female who presents to the emergency department for evaluation of a fall and back pain. Patient states that she lost her balance and fell 2 days ago and injured her back. She has a history of MS and states that she does not have very good balance. She reports pain in the back and difficulty walking due to this pain. She denies any other injuries. She denies any numbness or weakness. She does have some baseline incontinence due to the MS and states that she has had difficulty getting herself to the bathroom in time due to the back pain. Home Medications Medication Instructions Recorded Confirmed Type ibuprofen 200 mg tablet (Advil) 400 mg PO Q6H PRN Pain 04/16/21 06/03/22 History citalopram 40 mg tablet 40 mg PO QAM 06/03/22 06/03/22 History lorazepam 0.5 mg tablet 0.5 mg PO DIRECTED PRN PRIOR TO 06/03/22 06/03/22 History MRI PROCEDURE medroxyprogesterone 150 mg/mL 150 mg IM .[id number] 06/03/22 06/03/22 History intramuscular suspension oxycodone 5 mg tablet 5 mg PO Q6H PRN pain #12 tabs 06/03/22 Rx Allergies Allergy/AdvReac Type Severity Reaction Status Date / Time azithromycin Allergy Severe Swelling Verified 06/03/22 17:06 of Lip/Tongue/Throat pregabalin [From Lyrica] Allergy Severe EDEMA Verified 06/03/22 17:06 FACE, LIPS AND TONGUE amoxicillin Allergy Intermediate Facial Verified 06/03/22 17:06 swelling clavulanic acid Allergy Intermediate Facial Verified 06/03/22 17:06 swelling Sulfa (Sulfonamide Allergy Intermediate lips swell Verified 06/03/22 17:06 Antibiotics) sulfamethoxazole Allergy Intermediate hands numb Verified 06/03/22 17:06 trimethoprim Allergy Intermediate hands numb Verified 06/03/22 17:06 cefuroxime AdvReac Intermediate Hands-numbness Verified 06/03/22 17:06 and swelling Past Med/Surg History Medical History Multiple sclerosis Surgical History Previous section x2 Family History Other Family history non-contributory Social History Smoking Status: Current every day smoker Second Hand Exposure: Yes; Do You Dip or Chew Tobacco: No; Tobacco Cessation Education Requested by Patient: No Hx Alcohol Use: No Hx Substance Use: No Preferred Language: Burmese Communication Ability: Effective Veneer Drier Feeder Required: No Beliefs That Will Affect Care: None Current Living Situation: Alone Current Living Situation Comment: House Other Information That Helps Us Care for You: No Feels Safe at Home: Yes Safety Concerns: Feels Safe At This Time Assistive Devices: None Assistive Devices Comment: Suppose to get a walker Physical Exam Vital Signs Vital Signs - 24 hr 06/03/22 13:04 Temperature 36.8 C Temperature Source Temporal Artery Scan Pulse Rate 133 H Respiratory Rate 18 Blood Pressure 103/70 Blood Pressure Mean 81 Pulse Oximetry 98 Oxygen Delivery Method Room Air Sepsis Recent Fever Within 48 Hours No Sepsis New/Unexplained Change in Mental Status No Sepsis Action Taken by Nursing No Action Required VITALS: Vitals are noted on the nurse's note and reviewed by myself. GENERAL: This is a 41-year-old female, lying back in bed, in no acute distress but disheveled appearing. HEAD: Normocephalic atraumatic. EYES: Pupils equal round and reactive to light and accommodation. NECK: Supple without nuchal rigidity. Cervical spine is nontender. HEART: Regular rate and rhythm without murmurs gallops or rubs. LUNGS: Clear to auscultation bilaterally without wheezes, rales or rhonchi. ABDOMEN: Positive bowel sounds x 4. Soft, nontender to palpation. MUSCULOSKELETAL: There is tenderness to palpation throughout the low back. Full range of motion of bilateral lower extremities. Strength 5/5 to bilateral lower extremities. NEURO: Patient was alert and oriented to person place and time. Distal sensation intact. Course Administered Medications Acetaminophen (Acetaminophen 500 Mg Tab) 500 mg PO QID [facility] Stop: 07/03/22 20:59 Last Admin: 06/04/22 09:28 Dose: 500 mg Documented By: [id number] Admin: 06/03/22 20:57 Dose: 500 mg Documented By: TRAVIS Citalopram Hydrobromide (Citalopram 40 Mg Tab) 40 mg PO [facility] Stop: 07/04/22 08:59 Last Admin: 06/04/22 09:28 Dose: 40 mg Documented By: [id number] Ibuprofen (Ibuprofen 200 Mg Tab) 400 mg PO Q6H PRN PRN Reason: mild pain 1,2,3,4,5 Stop: 07/03/22 19:15 Last Admin: 06/04/22 10:46 Dose: 400 mg Documented By: [id number] Miscellaneous (Remove Nicoderm Patch) 1 each N/A DAILY@0859 [facility] Stop: 07/04/22 08:58 Last Admin: 06/04/22 10:45 Dose: 1 each Documented By: [id number] Zinacellaneous (Remove Nicoderm Patch) 1 each N/A DAILY@0859 [facility] Stop: 07/04/22 08:29 Last Admin: 06/04/22 10:47 Dose: 1 each Documented By: [id number] Admin: 06/04/22 10:45 Dose: 1 each Documented By: [id number] Nicotine (Nicotine 14 Mg/24 Hr Patch) [facility] [place] [facility] [place]: 07/04/22 09:59 Last Admin: 06/04/22 10:45 Dose: 14 mg Documented By: [id number] Oxycodone HCl (Oxycodone Hcl Ir 5 Mg Tab (Immediate Release)) 5 mg PO Q6H PRN PRN Reason: mod-severe pain 6,7,8,9,10 Stop: 06/17/22 19:15 Last Admin: 06/04/22 03:07 Dose: 5 mg Documented By: TRAVIS Senna/Docusate Sodium (Docusate Sodium/Senna 50/8.6mg Tab) 1 tab PO [facility] Stop: 07/03/22 19:15 Last Admin: 06/04/22 09:27 Dose: 1 tab Documented By: [id number] Admin: 06/03/22 20:57 Dose: 1 tab Documented By: TRAVIS Discontinued Medications Nicotine (Nicotine 14 Mg/24 Hr Patch) 14 mg TD NOW STA Stop: 06/03/22 17:24 Last Admin: 06/03/22 17:35 Dose: 14 mg Documented By: ELAINA Oxycodone HCl (Oxycodone Hcl Ir 5 Mg Tab (Immediate Release)) 5 mg PO NOW STA Stop: 06/03/22 15:07 Last Admin: 06/03/22 15:10 Dose: 5 mg Documented By: LONNIE Oxycodone HCl (Oxycodone Ir Home Pack) 1 each PO UD ONE Stop: 06/03/22 16:21 Last Admin: 06/03/22 17:16 Dose: Not Given Documented By: ELAINA Potassium Chloride (Potassium Chloride Crtab 20 Meq Tabcr) 40 meq PO NOW STA Stop: 06/04/22 08:09 Last Admin: 06/04/22 09:28 Dose: 40 meq Documented By: [id number] Medical Decision Making Differential Diagnosis Differential diagnosis includes lumbar fracture, sacral fracture, pelvic fra cture, among others. Home Medications was personally reviewed by me Laboratory Data 06/03/22 20:48 06/03/22 20:48 Imaging Data Attestation: I personally reviewed and interpreted this imaging study as follows: Radiologist's Impression: Lumbar Spine X-Ray 06/03/22 13:36 LUMBAR SPINE 5 VIEWS CLINICAL HISTORY: Fall. Right-sided low back pain. FINDINGS: 5 views of the lumbar spine are obtained. No prior studies are available for comparison at the time of dictation. The skeletal structures are well mineralized. There is no radiographic evidence of fracture or malalignment. Vertebral body height and alignment are maintained. The transverse and spinous processes are intact. There is no evidence of spondylolysis. The intervertebral disc spaces are well-maintained. Suspect a nondisplaced fracture of the sacrum at S1-S2. The remainder of the visualized bony pelvis appears intact. There is a nonobstructed abdominal bowel gas pattern. Phleboliths are scattered through the pelvis. IMPRESSION: 1. There is no radiographic evidence of acute fracture or malalignment involving the lumbar spine. 2. Suspect a nondisplaced sacral fracture at S1-S2. ACT 112: Negative or not required by law. Electronically signed by: Manuel Smith M.D. 06/03/2022 2:36 PM Pelvis X-Ray 06/03/22 13:37 SINGLE VIEW PELVIS CLINICAL HISTORY: Fall. Pelvic pain. FINDINGS: An AP view of the pelvis is obtained. No prior studies are available for comparison at the time of dictation. The skeletal structures are well mineralized. There is no radiographic evidence of acute fracture involving the hips or bony pelvis. The joint spaces of the hips are maintained. The sacroiliac joints are normal. The overlying soft tissues are within normal limits. Phleboliths are seen throughout the pelvis. IMPRESSION: No acute bony abnormality is identified. Electronically signed by: Manuel Smith M.D. 06/03/2022 2:[address] 06/03/22 14:56 CT SCAN OF THE PELVIS WITHOUT IV CONTRAST CLINICAL HISTORY: Fall. Pelvic pain. Abnormal radiographs. COMPARISON STUDY: Radiographs of the lumbar spine and pelvis performed the same day 06/03/2022. TECHNIQUE: CT scan of the pelvis is performed from the pelvic inlet to the proximal femora. Images are reviewed in the axial, sagittal, and coronal planes. IV contrast was not administered for this examination. A dose lowering technique was utilized adhering to the principles of ALARA. CT DOSE: 264.78 mGy.cm FINDINGS: The skeletal structures are well-mineralized. CT confirms the presence of a nondisplaced fracture through the superior aspect of S2. This is best seen on sagittal image #40. A vertical fracture is also identified in the left sacral ala, best seen on axial image #173. Trace hemorrhage is seen around the fracture sites. The remainder of the bony pelvis is intact. The proximal femora are maintained. The joint spaces of the hips are preserved. There is mild sclerosis of the sacroiliac joints. No lytic or blastic lesion is seen. The regional musculature is normal in appearance. The bladder, uterus, and adnexa are normal as visualized. No free fluid is seen in the cul-de-sac. There is no pelvic sidewall or inguinal lymphadenopathy. Imaged portions of the small bowel and colon are normal in caliber. IMPRESSION: 1. CT confirms a sacral fracture through the superior aspect of S2. 2. There is also a vertically oriented fracture of the left sacral ala. 3. Trace hemorrhage is seen around the fracture sites. No large hematoma is identified. 4. No additional fracture is seen. ACT 112: Negative or not required by law. Electronically signed by: Manuel Smith M.D. 06/03/2022 3:41 PM MDM Narrative This patient is a 41-year-old female who presents to the emergency department for evaluation of a fall, back pain and difficulty walking. X-rays were suggestive of a sacral fracture. CT was then performed which did confirm a sacral fracture. Initially I discussed admission with the patient and she was adamantly against this, wanted to go home. I did explain that I thought admission would be beneficial for the patient for pain control and to help set up some services for home. Patient's mother is present and was very concerned that the patient will not be able to get around and take care of herself at home. Patient continued to decline admission, so discharge paperwork was comp leted. However, when patient was given the walker she was unable to bear any weight even to stand. At this point, I again discussed with the patient and she then decided she was agreeable to admission. Case was discussed with the [facility] hospitalist, who agreed to evaluate the patient for further care. Impression Closed sacral fracture, Ambulatory dysfunction Discharge Plan Visit Data Chief Complaint: Fall Stated Complaint: FALL, BACK PAIN, DIFFICULTY WALKING ED Provider: Daniel Birch ED Midlevel Provider: Valerie Jenkins Discharge Problem: Closed sacral fracture, Ambulatory dysfunction Patient Disposition: Admitted As Inpatient Condition: Fair Discharge Instructions Interventions: ED Discharge Assessment Last Done: 06/03/22 18:40
[2022-06-03 21:18] LABS: Albumin Globulin Ratio 1.5 (0.9-2); Albumin Level 4.2 gm/dl (3.4-5.0); BUN Creatinine Ratio 13.8 (10-20); Bilirubin,Total 0.7 mg/dl (0.2-1.0); Calcium 9.4 mg/dl (8.6-10.3); Creatinine Clr Calc Pharmacy 81.1 ml/min; Est GFR (African American) 130.8 ml/min; Est GFR (Non-African American) 112.9 ml/min; Globulin 2.8 gm/dl (2.5-4.0); Magnesium 1.9 mg/dl (1.7-2.4)
[2022-06-03 21:26] LABS: Basophils # (auto) 0.04 K/uL (0-0.2); Basophils % (auto) 0.4 %; Eosinophils # (auto) 0.13 K/uL (0-0.50); Eosinophils % (auto) 1.2 %; Hematocrit (blood only) 39.6 % (37.0-47.0); Hemoglobin 13.8 g/dl (12.0-16.0); Immature Granulocytes # (auto) 0.03 K/uL (0.01-0.20); Immature Granulocytes % (auto) 0.3 %; Lymphocytes # (auto) 1.56 K/uL (1.2-3.4); Lymphocytes % (auto) 13.9 %; Mean Corpuscular Hemoglobin 29.4 pg (25.0-34.0); Mean Corpuscular Hgb Conc 34.8 g/dL (32.0-36.0); Mean Corpuscular Volume 84.3 fL (80.0-100.0); Mean Platelet Volume 9.8 fL (9.4-12.4); Monocytes # (auto) 0.77 K/uL (0.11-0.59); Monocytes % (auto) 6.8 %; Neutrophils # (auto) 8.72 K/uL (1.40-6.50); Neutrophils % (auto) 77.4 %; Platelet Count 285 K/uL (130-400); RDW Standard Deviation 43.6 fL (36.4-46.3); White Blood Count 11.25 K/ul (4.8-10.8)
[2022-06-04] MEDS: oxyCODONE HCL IR 5 MG TAB (IMMEDIATE RELEASE) PO PRN (03:07)
[2022-06-04 06:38] LABS: Albumin Globulin Ratio 1.5 (0.9-2); BUN Creatinine Ratio 16.1 (10-20); Bilirubin,Total 0.8 mg/dl (0.2-1.0); Est GFR (African American) 132.4 ml/min; Est GFR (Non-African American) 114.2 ml/min; Globulin 2.6 gm/dl (2.5-4.0); Magnesium 1.9 mg/dl (1.7-2.4); Potassium 3.3 mmol/L (3.5-5.1); Total Protein 6.6 gm/dl (6.0-8.3)
[2022-06-04 06:42] LABS: Basophils # (auto) 0.04 K/uL (0-0.2); Basophils % (auto) 0.5 %; Eosinophils # (auto) 0.14 K/uL (0-0.50); Eosinophils % (auto) 1.8 %; Hematocrit (blood only) 39.7 % (37.0-47.0); Hemoglobin 13.7 g/dl (12.0-16.0); Immature Granulocytes # (auto) 0.02 K/uL (0.01-0.20); Immature Granulocytes % (auto) 0.3 %; Lymphocytes # (auto) 1.44 K/uL (1.2-3.4); Lymphocytes % (auto) 18.8 %; Mean Corpuscular Hemoglobin 28.9 pg (25.0-34.0); Mean Corpuscular Hgb Conc 34.5 g/dL (32.0-36.0); Mean Corpuscular Volume 83.8 fL (80.0-100.0); Mean Platelet Volume 9.7 fL (9.4-12.4); Monocytes # (auto) 0.68 K/uL (0.11-0.59); Monocytes % (auto) 8.9 %; Neutrophils # (auto) 5.32 K/uL (1.40-6.50); Neutrophils % (auto) 69.7 %; Platelet Count 284 K/uL (130-400); RDW Standard Deviation 42.8 fL (36.4-46.3); Red Blood Count 4.74 M/uL (4.20-5.40); White Blood Count 7.64 K/ul (4.8-10.8)
[2022-06-04] MEDS ORDERED: POTASSIUM CHLORIDE CRTAB 20 MEQ TABCR PO STA (08:08)
--- NOTE | 2022-06-04 09:19 | Orthopedic Consultation ---
Date of Consultation June 04, 2022 Assessment & Plan (1) Closed sacral fracture: Patient was seen bedside along with Dr. Jalloh. Imaging reviewed: Left sacral ala fracture and S2 fracture Recommend conservative treatment WBAT BLE with walker Fall precautions PT/OT DVT prophylaxis per primary Pain management per primary Ordering vitamin D level recommend smoking cessation , tobacco slows healing process Present on Admission?: Yes History of Present Illness Reason for Consultation: sacral ala fracture and S2 fracture Attending Physician: Jordan Mcfarland MD History of Present Illness Patient is a 41 y.o female who was seen in the ED. She was found to have a S2 and left sacral ala fracture. She was seen bedside this am. She has a history of MS, cerebellar ataxia gait, ambulation dysfunction, depression and tobacco abuse. She explains on Saturday she was walking into her house and going up the stairs when she lost her balance. She explains she stumbled backwards and landed on the left side. She denies hitting her head or any LOC. She denies being dizzy. She states she was able to crawl to get up and with the assistance of her mother who witnessed the fall. She states that she continued to have pain in the lowback and this did not seem to improve so she was seen in the ED where she had imaging that revealed a S2 and left sacral ala fracture. She states she has no back pain this morning. She reports she has some pain over bilateral knees. She denies landing on knees at the time of the fall. She denies any limitation of her ROM of bilateral LEs. She denies any pain in the UES. She is getting oral pain medication and feels this is helping her pain. She is participating in outpt therapy and is followed by [facility] neurology. She had received Rituxan on 05/21/22. She smokes approx 1/2 pack of cigs a day. Allergies Allergy/AdvReac Type Severity Reaction Status Date / Time azithromycin Allergy Severe Swelling Verified 06/03/22 17:06 of Lip/Tongue/Throat pregabalin [From Lyrica] Allergy Severe EDEMA Verified 06/03/22 17:06 FACE, LIPS AND TONGUE amoxicillin Allergy Intermediate Facial Verified 06/03/22 17:06 swelling clavulanic acid Allergy Intermediate Facial Verified 06/03/22 17:06 swelling Sulfa (Sulfonamide Allergy Intermediate lips swell Verified 06/03/22 17:06 Antibiotics) sulfamethoxazole Allergy Intermediate hands numb Verified 06/03/22 17:06 trimethoprim Allergy Intermediate hands numb Verified 06/03/22 17:06 cefuroxime AdvReac Intermediate Hands-numbness Verified 06/03/22 17:06 and swelling Home Medications Medication Instructions Recorded Confirmed Type ibuprofen 200 mg tablet (Advil) 400 mg PO Q6H PRN Pain 04/16/21 06/03/22 History citalopram 40 mg tablet 40 mg PO QAM 06/03/22 06/03/22 History lorazepam 0.5 mg tablet 0.5 mg PO DIRECTED PRN PRIOR TO 06/03/22 06/03/22 History MRI PROCEDURE medroxyprogesterone 150 mg/mL 150 mg IM .[id number] 06/03/22 06/03/22 History intramuscular suspension oxycodone 5 mg tablet 5 mg PO Q6H PRN pain #12 tabs 06/03/22 Rx Patient History Medical History Multiple sclerosis Surgical History Previous section x2 Family History Other Family history non-contributory Social History Smoking Status: Current every day smoker Second Hand Exposure: Yes; Do You Dip or Chew Tobacco: No; Tobacco Cessation Education Requested by Patient: No Hx Alcohol Use: No Hx Substance Use: No Preferred Language: Serbian Communication Ability: Effective Hydro Station Operator Required: No Beliefs That Will Affect Care: None Current Living Situation: Alone Current Living Situation Comment: House Other Information That Helps Us Care for You: No Feels Safe at Home: Yes Safety Concerns: Feels Safe At This Time Assistive Devices: None Assistive Devices Comment: Suppose to get a walker Review of Systems Review of Systems: All systems reviewed & are unremarkable except as noted in HPI & below please refer to HPI Physical Exam Physical Exam: General: Alert and oriented x3 conversive, impulsive at times Musculoskeletal: Skin is normal in color and temperature over the bilateral LE and back. Superficial abrasions over the elbows. Neg for signs of infection. Mild tenderness with palpation on the right anterior hip, neg for pain in the groin. Neg for any pain over the left hip or over the back when she is positioned side lying. Tolerates AROM of the hips and knees w/o any c/o pain. Able to perform AROM of the UE without c/o pain. Neg log roll. Able to DF and PF ankle, Right ROM is more than the left, per pt this is her normal. BLE strength is 4/5 grossly BLE are NVI Results & Data Vital Signs (Past 12 Hours) Vital Signs Temp Pulse Resp BP Pulse Ox O2 Del Method 06/04/22 07:39 36.7 C 93 H 18 106/38 L 96 Room Air Diagnostic Findings Lumbar Spine X-Ray 06/03/22 13:36 LUMBAR SPINE 5 VIEWS CLINICAL HISTORY: Fall. Right-sided low back pain. FINDINGS: 5 views of the lumbar spine are obtained. No prior studies are available for comparison at the time of dictation. The skeletal structures are well mineralized. There is no radiographic evidence of fracture or malalignment. Vertebral body height and alignment are maintained. The transverse and spinous processes are intact. There is no evidence of spondylolysis. The intervertebral disc spaces are well-maintained. Suspect a nondisplaced fracture of the sacrum at S1-S2. The remainder of the visualized bony pelvis appears intact. There is a nonobstructed abdominal bowel gas pattern. Phleboliths are scattered through the pelvis. IMPRESSION: 1. There is no radiographic evidence of acute fracture or malalignment involving the lumbar spine. 2. Suspect a nondisplaced sacral fracture at S1-S2. ACT 112: Negative or not required by law. Electronically signed by: Manuel Smith M.D. 06/03/2022 2:36 PM Pelvis X-Ray 06/03/22 13:37 SINGLE VIEW PELVIS CLINICAL HISTORY: Fall. Pelvic pain. FINDINGS: An AP view of the pelvis is obtained. No prior studies are available for comparison at the time of dictation. The skeletal structures are well mineralized. There is no radiographic evidence of acute fracture involving the hips or bony pelvis. The joint spaces of the hips are maintained. The sacroiliac joints are normal. The overlying soft tissues are within normal limits. Phleboliths are seen throughout the pelvis. IMPRESSION: No acute bony abnormality is identified. Electronically signed by: Manuel Smith M.D. 06/03/2022 2:[address] 06/03/22 14:56 CT SCAN OF THE PELVIS WITHOUT IV CONTRAST CLINICAL HISTORY: Fall. Pelvic pain. Abnormal radiographs. COMPARISON STUDY: Radiographs of the lumbar spine and pelvis performed the same day 06/03/2022. TECHNIQUE: CT scan of the pelvis is performed from the pelvic inlet to the proximal femora. Images are reviewed in the axial, sagittal, and coronal planes. IV contrast was not administered for this examination. A dose lowering technique was utilized adhering to the principles of ALARA. CT DOSE: 264.78 mGy.cm FINDINGS: The skeletal structures are well-mineralized. CT confirms the presence of a nondisplaced fracture through the superior aspect of S2. This is best seen on sagittal image #40. A vertical fracture is also identified in the left sacral ala, best seen on axial image #173. Trace hemorrhage is seen around the fracture sites. The remainder of the bony pelvis is intact. The proximal femora are maintained. The joint spaces of the hips are preserved. There is mild sclerosis of the sacroiliac joints. No lytic or blastic lesion is seen. The regional musculature is normal in appearance. The bladder, uterus, and adnexa are normal as visualized. No free fluid is seen in the cul-de-sac. There is no pelvic sidewall or inguinal lymphadenopathy. Imaged portions of the small bowel and colon are normal in caliber. IMPRESSION: 1. CT confirms a sacral fracture through the superior aspect of S2. 2. There is also a vertically oriented fracture of the left sacral ala. 3. Trace hemorrhage is seen around the fracture sites. No large hematoma is identified. 4. No additional fracture is seen. ACT 112: Negative or not required by law. Electronically signed by: Manuel Smith M.D. 06/03/2022 3:41 PM
[2022-06-04] MEDS: DOCUSATE SODIUM/SENNA 50/8.6MG TAB PO SCH (09:27)
[2022-06-04] MEDS: CITALOPRAM 40 MG TAB PO SCH (09:28)
[2022-06-04] MEDS: ACETAMINOPHEN 500 MG TAB PO SCH ×4 (09:28→21:35)
--- NOTE | 2022-06-04 10:07 | Neurology Consultation ---
Date of Consultation June 04, 2022 Assessment & Plan (1) Multiple sclerosis: Plan NEUROLOGY CONSULTATION Assessment & Plan: Impression: Pt with MS and on rituximab infusion, fall from her imbalance and sacral fx. no sign of major flare up currently. 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 Recommendations: -no need for steroid infusion. -not much to do for her chronic movement disorder at this point. continue tx for sacral fx. check UA. call again if new question. will sign off. Dr. Kory Polk MD [facility] Chief Complaint: tremor History of Present Illness: pt asked to be seen for leg tremors. pt with MS and followed by [facility] neurology. pt noted that she has b/l leg movement disorders for more than 5 yrs. it is her baseline and chronic in nature. she fall and has sacral fx. ortho following. no focal new weakness. chart reviewed. Admission/Initial HPI documentation: This is a 41-year-old female with significant past medical history of multiple sclerosis, cerebellar ataxia, internuclear ophthalmoplegia, CHEL, ambulatory dysfunction, depression and tobacco use disorder who presents ED secondary to fall that occurred 2 days ago and subsequent pain. Patient's mother is at bedside. She was walking up the steps to get to her house and was carrying cigarettes in 1 hand and a water bottle and the other. Her mother went to open her front door and when she turned around patient was stumbling backwards and fell on her left side. Since the fall she has had significant low back, buttock and left-sided pain. This is caused her the inability to ambulate. She was brought to ED today with mother at bedside due to concern for ambulatory dysfunction and pain. She denies any numbness or tingling to lower extremities. She has chronic bladder urgency and incontinence and this is unchanged. She denies any bowel incontinence. She has otherwise been in her normal state of health. She does have MS and follows [facility] neurology. She is currently on Rituxan every 6 months. Her last dose was May 21. She denies any fever, chills, sweats, lightheadedness, dizziness, chest pain, shortness with, cough, nausea, vomiting, abdominal pain.In ED patient was found to have sacral fracture to the superior aspect of S2 and a vertically oriented fracture of the left sacral omid. Trace hemorrhage is seen around the fracture sites but no large hematoma is identified.She received oxycodone for pain control and this seemed to help. Currently pain is 7 out of 10. No other falls than Saturday. Typically uses walker at baseline but hasn't been using. Lives alone. Past Medical History: See chart Meds: See chart I personally reviewed all of the medications Social & Family History: See chart Review of Systems: Per initial HPI on admission. Physical Exam: GEN: NAD HEENT: Normocephalic Neuro: Mental status:A & O x 3.No dysarthria or aphasia.No neglect. Fluent speech. No apraxia Cranial Nerves:II-XII intact Motor:Normal bulk and tone,5/5 strength x 4 extremities, noted for random chorea like movements in legs, left greater than rt (pt states it is her baseline for years). Coordination:Intact Sensation: Intact x 4 extremities to touch Chart reviewed I have spent more than 50% educating patient about potential diagnosis and neurological evaluation and coordinating care with patient's treatment team. Total time spent (including chart review and coordination of care): 80 min (this includes chart review). History of Present Illness Attending Physician: Jordan Mcfarland MD Allergies Allergy/AdvReac Type Severity Reaction Status Date / Time azithromycin Allergy Severe Swelling Verified 06/03/22 17:06 of Lip/Tongue/Throat pregabalin [From Lyrica] Allergy Severe EDEMA Verified 06/03/22 17:06 FACE, LIPS AND TONGUE amoxicillin Allergy Intermediate Facial Verified 06/03/22 17:06 swelling clavulanic acid Allergy Intermediate Facial Verified 06/03/22 17:06 swelling Sulfa (Sulfonamide Allergy Intermediate lips swell Verified 06/03/22 17:06 Antibiotics) sulfamethoxazole Allergy Intermediate hands numb Verified 06/03/22 17:06 trimethoprim Allergy Intermediate hands numb Verified 06/03/22 17:06 cefuroxime AdvReac Intermediate Hands-numbness Verified 06/03/22 17:06 and swelling Home Medications Medication Instructions Recorded Confirmed Type ibuprofen 200 mg tablet (Advil) 400 mg PO Q6H PRN Pain 04/16/21 06/03/22 History citalopram 40 mg tablet 40 mg PO QAM 06/03/22 06/03/22 History lorazepam 0.5 mg tablet 0.5 mg PO DIRECTED PRN PRIOR TO 06/03/22 06/03/22 History MRI PROCEDURE medroxyprogesterone 150 mg/mL 150 mg IM .[id number] 06/03/22 06/03/22 History intramuscular suspension oxycodone 5 mg tablet 5 mg PO Q6H PRN pain #12 tabs 06/03/22 Rx Patient History Medical History Multiple sclerosis Surgical History Previous section x2 Family History Other Family history non-contributory Social History Smoking Status: Current every day smoker Second Hand Exposure: Yes; Do You Dip or Chew Tobacco: No; Tobacco Cessation Education Requested by Patient: No Hx Alcohol Use: No Hx Substance Use: No Preferred Language: Korean Communication Ability: Effective Chore Worker Required: No Beliefs That Will Affect Care: None Current Living Situation: Alone Current Living Situation Comment: House Other Information That Helps Us Care for You: No Feels Safe at Home: Yes Safety Concerns: Feels Safe At This Time Assistive Devices: None Assistive Devices Comment: Suppose to get a walker Results & Data Vital Signs (Past 12 Hours) Vital Signs Temp Pulse Resp BP Pulse Ox O2 Del Method 06/04/22 07:39 36.7 C 93 H 18 106/38 L 96 Room Air
[2022-06-04] MEDS: NICOTINE 14 MG/24 HR PATCH TD SCH (10:45)
[2022-06-04] MEDS: IBUPROFEN 200 MG TAB PO PRN (10:46)
--- NOTE | 2022-06-04 10:59 | Hospitalist Progress Note ---
Date of Service June 04, 2022 Assessment & Plan (1) Fall: (2) Closed sacral fracture: (3) Ambulatory dysfunction: (4) Multiple sclerosis: Plan This is a 41-year-old female with significant past medical history of multiple sclerosis, cerebellar ataxia, internuclear ophthalmoplegia, CHEL, ambulatory dysfunction, depression and tobacco use disorder who presents ED secondary to fall that occurred 2 days ago and subsequent pain. Fall Ambulatory dysfunction S2 fracture/left sacral ala fracture Admit to medical Pain control with scheduled Tylenol, ibuprofen for mild pain, oxycodone for moderate to severe pain PT/OT At baseline patient has a walker, but typically does not use Will need case management to determine ability to return home and need Consult orthopedics -appreciate recs, WBAT with walker Hypokalemia Replete and follow Multiple sclerosis Currently receives rituximab therapy every 6mo Mostly at baseline although struggling with worsening bilateral lower extremity tremors and incontinence appreciate neuro consult, will obtain UA no further tx at this time for chronic movement disorder Tobacco abuse Encourage smoking cessation Nicotine patch Underweight, BMI 14.7 Cachexia Consult dietitian pt aware of being underweight, encourage increased protein intake to help with fx healing DVT ppx: SCDS for now, monitor hgb given trace bleeding around fx but no hematoma, if remains stable on 06/05 will add chemical prophylaxis Dispo: med/surg, needs PT/OT, pain control, CM to determine needs FULL CODE PCP: Gertrude A total of 40 minutes was spent with greater than 50% of that time personally viewing all current laboratory work and diagnostic imaging studies obtained in the ED. Additionally, I was able to view the patients past medication reconciliation and history with direct visualization in the patients chart. Included in the time above, a portion of that time was spent assessing the patient while discussing and collaborating with specialists, if necessary, and making medical decision making on treatment plan. All of the above was collaborated with Dr. Mcfarland. Please see addendum for further details. Admission and Anticipated Discharge Date Admission Date: June 03, 2022 Supervising Physician Co-Signing Physician Notes Pt seen and examined by me, care coordinated w/ Latoya Johnson PA-C, pls refer to her note above for further detail. Patient is currently lying in bed, in no acute distress. Says that pain is well controlled while she is resting. Denies any fevers chills chest pain shortness of breath, denies abdominal pain nausea vomiting. Lung clear to auscultation, heart sounds regular. Abdomen soft nontender nondistended. Seen by orthopedics, WBAT with walker. Seen by neurology, recommend to obtain UA to rule out UTI. MD Bruna Subjective Patient was seen in room 355. Follow-up ambulatory dysfunction and sacral fracture. She continues to have pain and limited mobility. She wishes to smoke. She denies fever, chills, sweats, lightheadedness, dizziness, chest pain, shortness breath, nausea, vomiting, abdominal pain. Review of Systems Review of Systems: All systems reviewed & are unremarkable except as noted in HPI & below Physical Exam Physical Exam: Gen: Thin, cachectic, female, lying in bed , NAD, A&O x3 HEENT: Normocephalic, atraumatic, conjunctivae moist, sclerae anicteric, mucous membranes dry Lung: Clear to Auscultation bilaterally, no wheezes/rales/rhonchi Heart: Regular rate, regular rhythm, no murmurs, rubs, or gallops Abdomen: Soft, NT, ND +BS x 4 Extremities: No edema Skin: Warm, no rash, negative turgor. Results & Data Results & Data Vital Signs (Past 12 Hours) Vital Signs Temp Pulse Resp BP Pulse Ox O2 Del Method 06/04/22 07:39 36.7 C 93 H 18 106/38 L 96 Room Air Laboratory Results Short CBC 06/03/22 06/04/22 Range/Units 20:48 05:53 WBC 11.25 H 7.64 (4.8-10.8) K/ul Hgb 13.8 13.7 (12.0-16.0) g/dl Hct 39.6 39.7 (37.0-47.0) % Plt Count 285 284 (130-400) K/uL BMP 06/03/22 06/04/22 20:48 05:53 Sodium 135 L 135 L Potassium 4.0 3.3 L Chloride 104 104 Carbon Dioxide 27 24 BUN 8 9 Creatinine 0.58 L 0.56 L Glucose 90 86 Calcium 9.4 9.0 Liver Function 06/03/22 06/04/22 Range/Units 20:48 05:53 Total Bilirubin 0.7 0.8 (0.2-1.0) mg/dl AST 14 13 (13-39) U/L ALT 13 11 (7-52) U/L Alkaline Phosphatase 79 74 (34-104) U/L Albumin 4.2 4.0 (3.4-5.0) gm/dl Medications Administered Current Inpatient Medications Acetaminophen (Acetaminophen 325 Mg Tab) 650 mg PO Q4H PRN PRN Reason: pain/fever Stop: 07/03/22 19:15 Acetaminophen (Acetaminophen 500 Mg Tab) 500 mg PO QID [facility] Stop: 07/03/22 20:59 Last Admin: 06/04/22 09:28 Dose: 500 mg Al Hydrox/Mg Hydrox/Simethicone (Aluminum/Magnesium Susp 30 Ml Udc) 30 ml PO Q6H PRN PRN Reason: Dyspepsia Stop: 07/03/22 19:15 Citalopram Hydrobromide (Citalopram 40 Mg Tab) [address] [facility] Stop: 07/04/22 08:59 Last Admin: 06/04/22 09:28 Dose: 40 mg Ibuprofen (Ibuprofen 200 Mg Tab) 400 mg PO Q6H PRN PRN Reason: mild pain 1,2,3,4,5 Stop: 07/03/22 19:15 Last Admin: 06/04/22 10:46 Dose: 400 mg Magnesium Hydroxide (Magnesium Hydroxide Susp 30 Ml Udc) 30 ml PO Q6H PRN PRN Reason: Constipation Stop: 07/03/22 19:15 Miscellaneous (Remove Nicoderm Patch) 1 each N/A DAILY@0859 [facility] Stop: 07/04/22 08:58 Last Admin: 06/04/22 10:45 Dose: 1 each Miscellaneous (Remove Nicoderm Patch) 1 each N/A DAILY@0859 [facility] Stop: 07/04/22 08:29 Last Admin: 06/04/22 10:47 Dose: 1 each Nicotine (Nicotine 14 Mg/24 Hr Patch) [address] [facility] Stop: 07/04/22 09:59 Last Admin: 06/04/22 10:45 Dose: 14 mg Ondansetron HCl (Ondansetron Inj 2 Mg/Ml 2 Ml Vial) 4 mg IV Q6H PRN PRN Reason: Nausea Stop: 07/03/22 19:15 Oxycodone HCl (Oxycodone Hcl Ir 5 Mg Tab (Immediate Release)) 5 mg PO Q6H PRN PRN Reason: mod-severe pain 6,7,8,9,10 Stop: 06/17/22 19:15 Last Admin: 06/04/22 03:07 Dose: 5 mg Polyethylene Glycol (Polyethylene (Miralax) 17 Gm Pack) 17 gm PO DAILY PRN PRN Reason: Constipation Stop: 07/03/22 19:15 Senna/Docusate Sodium (Docusate Sodium/Senna 50/8.6mg Tab) [address] [facility] Stop: 07/03/22 19:15 Last Admin: 06/04/22 09:27 Dose: 1 tab
[2022-06-04 15:05] LABS: Appearance Urine Cloudy (Clear); Bacteria Urine Automated 4+ (Negative); Blood Urine Negative (Negative); Color Urine Dark Yellow; Epithelial Cell Urine Auto 0-5 /lpf (0-5); Glucose Urine UA Negative (Negative); Ketones Urine 1+ (Negative); Leukocyte Esterase Urine 1+ (Negative); Nitrite Urine Positive (Negative); Protein Urine Trace (Negative); RBC Urine Automated 0-4 /hpf (0-4); Specific Gravity Urine 1.023 (1.000-1.030); Urobilinogen Urine Negative (Negative); WBC Urine Automated >30 /hpf (0-5); pH Urine 5.5 (4.5-7.5)
[2022-06-04 15:14] LABS: Bilirubin Urine 1+ (Negative)
[2022-06-04] MEDS: AZTREONAM 1,000 MG in DEXTROSE 5% 100 ML IV SCH (17:30)
[2022-06-05] MEDS: oxyCODONE HCL IR 5 MG TAB (IMMEDIATE RELEASE) PO PRN (03:00)
[2022-06-05] MEDS: AZTREONAM 1,000 MG in DEXTROSE 5% 100 ML IV SCH ×2 (04:09→15:47)
[2022-06-05 06:36] LABS: Hematocrit (blood only) 40.5 % (37.0-47.0); Hemoglobin 14.1 g/dl (12.0-16.0); Mean Corpuscular Hemoglobin 29.4 pg (25.0-34.0); Mean Corpuscular Hgb Conc 34.8 g/dL (32.0-36.0); Mean Corpuscular Volume 84.4 fL (80.0-100.0); Mean Platelet Volume 9.9 fL (9.4-12.4); Platelet Count 280 K/uL (130-400); RDW Coefficient of Variation 13.8 % (11.5-14.5); RDW Standard Deviation 42.5 fL (36.4-46.3)
[2022-06-05 06:44] LABS: BUN Creatinine Ratio 28.3 (10-20); Calcium 8.9 mg/dl (8.6-10.3); Creatinine Clr Calc Pharmacy 102.3 ml/min; Est GFR (African American) 141.2 ml/min; Est GFR (Non-African American) 121.8 ml/min; Potassium 3.8 mmol/L (3.5-5.1)
[2022-06-05] MEDS: ACETAMINOPHEN 500 MG TAB PO SCH ×4 (07:54→20:35)
[2022-06-05] MEDS: DOCUSATE SODIUM/SENNA 50/8.6MG TAB PO SCH (07:54)
[2022-06-05] MEDS: NICOTINE 14 MG/24 HR PATCH TD SCH (07:55)
[2022-06-05] MEDS: CITALOPRAM 40 MG TAB PO SCH (07:55)
--- NOTE | 2022-06-05 10:07 | Orthopedic Progress Note ---
Date of Service June 05, 2022 Assessment & Plan (1) Closed sacral fracture: Plan: The patient was educated regarding today's findings. Conservative care measures were discussed. She was encouraged to participate with PT and OT. Likelihood for placement at a shelter facility or rehab hospital was discussed. She states she would rather go home. I do not think she would be safe, nor adequately care for herself at home. Continue with oral pain medication as needed. She has a restless leg type presentation. She may benefit from neurology eval. We will continue to follow while she is admitted. Anticipate that she can follow-up in the office for additional imaging once she is discharged. Admission and Anticipated Discharge Date Admission Date: June 03, 2022 Subjective This 41-year-old female seen today in her room. She states she is having back pain. It is no different than when she was in the ED. She states it comes and goes. She is currently laying in her bed, and is quite far down in the bed with the head elevated. She has constant movement of her legs. Denies any numbness or tingling. She had minimal participation in PT yesterday. She refused ambulation but was able to stand at bedside with assistance. No new complaints today. Physical Exam Physical Exam: General: Frail, thin, middle-aged female, in no acute distress. Laying in bed. Alert and oriented. Answers questions rapidly. Sometimes nonsensical. Constant movement of her legs. Skin: Warm and dry with fair turgor. No rashes. No ecchymosis or edema in her extremities. Musculoskeletal: Low back evaluation reveals discomfort over her pelvis and sacrum. Intact active motion of the lower extremities. Passive motion does not cause hip pain, but does cause some mild increase in discomfort in her back. No pain with palpation over her hips. Neurologic: Gross sensation is intact across both lower extremities by soft touch. Results & Data Vital Signs (Past 12 Hours) Vital Signs Temp Pulse Resp BP Pulse Ox O2 Del Method 06/05/22 07:46 98.2 F 79 16 106/69 95 Room Air
[2022-06-05] MEDS: LIDOCAINE 5% 1 PATCH TD SCH (10:50)
[2022-06-05] MEDS: CHOLECALCIFEROL 1,000 UNITS 25 MCG TAB PO SCH (10:51)
--- NOTE | 2022-06-05 13:29 | Hospitalist Progress Note ---
Date of Service June 05, 2022 Assessment & Plan (1) Fall: (2) Closed sacral fracture: (3) Ambulatory dysfunction: (4) Multiple sclerosis: Plan This is a 41-year-old female with significant past medical history of multiple sclerosis, cerebellar ataxia, internuclear ophthalmoplegia, CHEL, ambulatory dysfunction, depression and tobacco use disorder who presents ED secondary to fall that occurred 2 days ago and subsequent pain. Fall Ambulatory dysfunction S2 fracture/left sacral ala fracture Admit to medical Pain control with scheduled Tylenol, ibuprofen for mild pain, oxycodone for moderate to severe pain PT/OT - high fall risk, recommend inpt rehab, continue PT/OT while hosp At baseline patient has a walker, but typically does not use Will need case management to determine ability to return home and need Consult orthopedics -Dr. Jalloh discussed with ER PA who stated conservative management Multiple sclerosis Currently receives rituximab therapy every 6mo Mostly at baseline although struggling with worsening bilateral lower extremity tremors and incontinence will consult neurology for lower extremity tremors Tobacco abuse Encourage smoking cessation Nicotine patch Underweight, BMI 14.7 Cachexia Consult dietitian Abnormal UA/Possible UTI pt with multiple allergies previous cx grew coag neg staph given allergy to PCN/CEPH will start with IV aztreonam culture: gram negative bacilli, still pending Vitamin D deficiency vit D 25.6 start vit D supplement DVT ppx: SCDS for now, hgb stable despite trace hematoma surrounding fx will start lovenox Dispo: med/surg, needs PT/OT, pain control, possible d/c to [facility] tomorrow FULL CODE PCP: Gertrude A total of 40 minutes was spent with greater than 50% of that time personally viewing all current laboratory work and diagnostic imaging studies obtained in the ED. Additionally, I was able to view the patients past medication reconciliation and history with direct visualization in the patients chart. Included in the time above, a portion of that time was spent assessing the patient while discussing and collaborating with specialists, if necessary, and making medical decision making on treatment plan. All of the above was collaborated with Dr. Mcfarland. Please see addendum for further details. Admission and Anticipated Discharge Date Admission Date: June 05, 2022 Supervising Physician Co-Signing Physician Notes Pt seen and examined by me, care coordinated w/ Latoya Johnson PA-C, pls refer to her note above for further detail. Patient is currently lying in bed, in no acute distress. Says that pain is well controlled while she is resting. Denies any fevers chills chest pain shortness of breath, denies abdominal pain nausea vomiting. Lung clear to auscultation, heart sounds regular. Abdomen soft nontender nondistended. Seen by orthopedics, WBAT with walker. Pt could not participate with PT much. Likely plan to DC to [facility] tmrw. Ucultx pending. Cont. Abx. MD Bruna Subjective Patient was seen in room 355. Follow-up ambulatory dysfunction and sacral fracture. She continues to have pain. She did not really participate in therapy yesterday. Denies f/c/s, chest pain, sob, n/v/d. Review of Systems Review of Systems: All systems reviewed & are unremarkable except as noted in HPI & below Physical Exam Physical Exam: Gen: Thin, cachectic, female, lying in bed , NAD, A&O x3 HEENT: Normocephalic, atraumatic, conjunctivae moist, sclerae anicteric, mucous membranes dry Lung: Clear to Auscultation bilaterally, no wheezes/rales/rhonchi Heart: Regular rate, regular rhythm, no murmurs, rubs, or gallops Abdomen: Soft, NT, ND +BS x 4 Extremities: No edema Skin: Warm, no rash, negative turgor. Results & Data Results & Data Vital Signs (Past 12 Hours) Vital Signs Temp Pulse Resp BP Pulse Ox O2 Del Method 06/05/22 10:41 37.0 C 88 18 101/68 95 Room Air 06/05/22 07:46 36.8 C 79 16 106/69 95 Room Air Laboratory Results Short CBC 06/05/22 Range/Units 05:54 WBC 8.20 (4.8-10.8) K/ul Hgb 14.1 (12.0-16.0) g/dl Hct 40.5 (37.0-47.0) % Plt Count 280 (130-400) K/uL BMP 06/05/22 05:54 Sodium 136 Potassium 3.8 Chloride 105 Carbon Dioxide 23 BUN 13 Creatinine 0.46 L Glucose 83 Calcium 8.9 Urine 06/04/22 Range/Units 13:35 Urine Color Dark Yellow Urine Appearance Cloudy A (Clear) Urine pH 5.5 (4.5-7.5) Ur Specific Evans 1.023 (1.000-1.030) Urine Protein Trace H (Negative) Urine Glucose (UA) Negative (Negative) Medications Administered Current Inpatient Medications Acetaminophen (Acetaminophen 325 Mg Tab) 650 mg PO Q4H PRN PRN Reason: pain/fever Stop: 07/03/22 19:15 Acetaminophen (Acetaminophen 500 Mg Tab) 500 mg PO QID [facility] Stop: 07/03/22 20:59 Last Admin: 06/05/22 07:54 Dose: 500 mg Al Hydrox/Mg Hydrox/Simethicone (Aluminum/Magnesium Susp 30 Ml Udc) 30 ml PO Q6H PRN PRN Reason: Dyspepsia Stop: 07/03/22 19:15 Citalopram Hydrobromide (Citalopram 40 Mg Tab) [facility] Stop: 07/04/22 08:59 Last Admin: 06/05/22 07:55 Dose: 40 mg Aztreonam 1,000 mg/ Dextrose 110 mls @ 100 mls/hr IV Q12H [facility]; Protocol Stop: 06/09/22 15:59 Last Infusion: 06/05/22 06:38 Dose: Infused Ibuprofen (Ibuprofen 200 Mg Tab) 400 mg PO Q6H PRN PRN Reason: mild pain 1,2,3,4,5 Stop: 07/03/22 19:15 Last Admin: 06/04/22 10:46 Dose: 400 mg Lidocaine (Lidocaine 5% 1 Patch) 1 patch [facility] Stop: 07/05/22 09:44 Last Admin: 06/05/22 10:50 Dose: 1 patch Magnesium Hydroxide (Magnesium Hydroxide Susp 30 Ml Udc) 30 ml PO Q6H PRN PRN Reason: Constipation Stop: 07/03/22 19:15 Miscellaneous (Remove Nicoderm Patch) 1 each N/A DAILY@0859 [facility] Stop: 07/04/22 08:58 Last Admin: 06/05/22 07:54 Dose: Not Given Miscellaneous (Remove Nicoderm Patch) 1 each N/A DAILY@0859 [facility] Stop: 07/04/22 08:29 Last Admin: 06/05/22 07:54 Dose: Not Given Miscellaneous (Remove Lidoderm Patch) 1 each N/A DAILY@2100 [facility] Stop: 07/05/22 20:59 Nicotine (Nicotine 14 Mg/24 Hr Patch) 14 mg TD QAM [facility] Stop: 07/04/22 09:59 Last Admin: 06/05/22 07:55 Dose: Not Given Ondansetron HCl (Ondansetron Inj 2 Mg/Ml 2 Ml Vial) 4 mg IV Q6H PRN PRN Reason: Nausea Stop: 07/03/22 19:15 Oxycodone HCl (Oxycodone Hcl Ir 5 Mg Tab (Immediate Release)) 5 mg PO Q6H PRN PRN Reason: mod-severe pain 6,7,8,9,10 Stop: 06/17/22 19:15 Last Admin: 06/05/22 03:00 Dose: 5 mg Polyethylene Glycol (Polyethylene (Miralax) 17 Gm Pack) 17 gm PO DAILY PRN PRN Reason: Constipation Stop: 07/03/22 19:15 Senna/Docusate Sodium (Docusate Sodium/Senna 50/8.6mg Tab) 1 tab PO [facility] Stop: 07/03/22 19:15 Last Admin: 06/05/22 07:54 Dose: 1 tab Vitamin D (Cholecalciferol 1,000 Units 25 Mcg Tab) 1,000 units [facility] Stop: 07/05/22 09:14 Last Admin: 06/05/22 10:51 Dose: 1,000 units
[2022-06-05] MEDS ORDERED: ERGOCALCIFEROL 50,000 UNITS 1250 MCG CAP PO ONE (14:00)
[2022-06-05] MEDS ORDERED: ENOXAPARIN INJ 30 MG/0.3 ML SYR SQ SCH (21:00)
[2022-06-06] MEDS: AZTREONAM 1,000 MG in DEXTROSE 5% 100 ML IV SCH (03:36)
[2022-06-06] MEDS: IBUPROFEN 200 MG TAB PO PRN (07:36)
[2022-06-06] MEDS: ACETAMINOPHEN 500 MG TAB PO SCH ×2 (07:36→12:19)
[2022-06-06] MEDS: LIDOCAINE 5% 1 PATCH TD SCH (07:37)
[2022-06-06] MEDS: NICOTINE 14 MG/24 HR PATCH TD SCH (07:42)
[2022-06-06 08:57] LABS: BUN Creatinine Ratio 35.3 (10-20); Creatinine Clr Calc Pharmacy 92.3 ml/min; Est GFR (African American) 136.5 ml/min; Est GFR (Non-African American) 117.8 ml/min; Potassium 3.8 mmol/L (3.5-5.1)
[2022-06-06] MEDS ORDERED: CIPROFLOXACIN 250 MG TAB PO SCH (09:00)
[2022-06-06] MEDS ORDERED: ADVANCED PROBIOTIC 1250 MG CAPSULE PO SCH (09:00)
[2022-06-06] MEDS: DOCUSATE SODIUM/SENNA 50/8.6MG TAB PO SCH (09:05)
[2022-06-06] MEDS: CITALOPRAM 40 MG TAB PO SCH (09:05)
[2022-06-06] MEDS: CHOLECALCIFEROL 1,000 UNITS 25 MCG TAB PO SCH (09:05)
--- NOTE | 2022-06-06 13:50 | Discharge Summary ---
Discharge Summary Date of Service June 06, 2022 Notes For Next Care Provider MS patient with fall, found to have sacral fracture - conservative mgmt, dc to SNF for rehab. Medication Changes From Visit Complete Cipro course for abx, pain control for sacral fx. Admission HPI Per Admitting Provider This is a 41-year-old female with significant past medical history of multiple sclerosis, cerebellar ataxia, internuclear ophthalmoplegia, CHEL, ambulatory dysfunction, depression and tobacco use disorder who presents ED secondary to fall that occurred 2 days ago and subsequent pain. Patient's mother is at bedside. She was walking up the steps to get to her house and was carrying cigarettes in 1 hand and a water bottle and the other. Her mother went to open her front door and when she turned around patient was stumbling backwards and fell on her left side. Since the fall she has had significant low back, buttock and left-sided pain. This is caused her the inability to ambulate. She was brought to ED today with mother at bedside due to concern for ambulatory dysfunction and pain. She denies any numbness or tingling to lower extremities. She has chronic bladder urgency and incontinence and this is unchanged. She denies any bowel incontinence. She has otherwise been in her normal state of health. She does have MS and follows [facility] neurology. She is currently on Rituxan every 6 months. Her last dose was May 21. She denies any fever, chills, sweats, lightheadedness, dizziness, chest pain, shortness with, cough, nausea, vomiting, abdominal pain.In ED patient was found to have sacral fracture to the superior aspect of S2 and a vertically oriented fracture of the left sacral omid. Trace hemorrhage is seen around the fracture sites but no large hematoma is identified.She received oxycodone for pain control and this seemed to help. Currently pain is 7 out of 10. No other falls than Saturday. Typically uses walker at baseline but hasn't been using. Lives alone. Admission Exam Per Admitting Provider Gen: Thin, cachectic, female, lying in bed, NAD, A&O x3 HEENT: Normocephalic, atraumatic, conjunctivae moist, sclerae anicteric, mucous membranes dry Lung: Clear to Auscultation bilaterally, no wheezes/rales/rhonchi Heart: Regular rate, regular rhythm, no murmurs, rubs, or gallops Abdomen: Soft, NT, ND +BS x 4 Extremities: No edema Skin: Warm, no rash Principal Dx & Hospital Course #1 = Principal Diagnosis (1) Fall: (2) Closed sacral fracture: (3) Ambulatory dysfunction: (4) Multiple sclerosis: Plan This is a 41-year-old female with significant past medical history of multiple sclerosis, cerebellar ataxia, internuclear ophthalmoplegia, CHEL, ambulatory dysfunction, depression and tobacco use disorder who presents ED secondary to fall that occurred [address] pelvis showed sacral fracture through the superior aspect of S2 as well as a vertically oriented fracture of the left sacral ala. Orthopedic service consulted, who reviewed imaging and recommended conservative management. PT/OT evaluation recommended inpatient rehab. Has a walker to use at baseline but admittedly does not use it much. Pain controlled with PRN Tylenol, Advil and PRN oxycodone for severe pain. Encouraged smoking cessation and ordered nicotine patch. Neurology consulted for lower extremity tremors, but did not feel there is any sign of major flareup currently. 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 No need for steroid infusion, continue rituximab therapy and treatment for sacral fracture. Dietitian consulted due to patient being underweight with BMI of 14.7. Recommended continuation of regular diet as well as [place] breakfast essentials packets mixed with whole milk twice a day to increase nutrition. Urine culture revealed E. coli UTI and will continue Cipro treatment for 2 more days. Patient comfortable and hemodynamically stable at time of discharge to SNF. Discharge Exam Gen: Thin, cachectic, female, lying in bed , NAD, A&O x3 HEENT: Normocephalic, atraumatic, conjunctivae moist, sclerae anicteric, mucous membranes dry Lung: Clear to Auscultation bilaterally, no wheezes/rales/rhonchi Heart: Regular rate, regular rhythm, no murmurs, rubs, or gallops Abdomen: Soft, NT, ND +BS x 4 Extremities: No edema Skin: Warm, no rash, negative turgor. Updated Medication List Medication Instructions Recorded Confirmed Type lorazepam 0.5 mg tablet 0.5 mg PO DIRECTED PRN PRIOR TO 06/03/22 06/03/22 History MRI PROCEDURE medroxyprogesterone 150 mg/mL 150 mg IM .[id number] 06/03/22 06/03/22 History intramuscular suspension nicotine 7 mg/24 hr daily 14 mg transdermal QAM 14 days #14 06/05/22 Rx transdermal patch ea acetaminophen 325 mg tablet 650 mg PO Q4H PRN fever or pain 06/06/22 Rx #30 tabs ciprofloxacin HCl 250 mg tablet 250 mg PO BID #3 tabs 06/06/22 Rx citalopram 40 mg tablet 40 mg PO QAM #30 tabs 06/06/22 Rx ibuprofen 200 mg tablet (Advil) 400 mg PO Q6H PRN Pain #30 tabs 06/06/22 Rx oxycodone 5 mg capsule 5 mg PO Q6H PRN severe pain (scale 06/06/22 Rx score 7-10) #10 caps Hospital Stay Data Consultations 06/03/22 17:11 ED Decision to Admit Stat 06/03/22 19:16 Consult Neurology Routine Consult Orthopedic Surgery Routine Diagnostic Imagining Performed 06/03/22 14:56 CT pelvis wo con Stat FINDINGS: The skeletal structures are well-mineralized. CT confirms the presence of a nondisplaced fracture through the superior aspect of S2. This is best seen on sagittal image #40. A vertical fracture is also identified in the left sacral ala, best seen on axial image #173. Trace hemorrhage is seen around the fracture sites. The remainder of the bony pelvis is intact. The proximal femora are maintained. The joint spaces of the hips are preserved. There is mild sclerosis of the sacroiliac joints. No lytic or blastic lesion is seen. The regional musculature is normal in appearance. The bladder, uterus, and adnexa are normal as visualized. No free fluid is seen in the cul-de-sac. There is no pelvic s idewall or inguinal lymphadenopathy. Imaged portions of the small bowel and colon are normal in caliber. IMPRESSION: 1. CT confirms a sacral fracture through the superior aspect of S2. 2. There is also a vertically oriented fracture of the left sacral ala. 3. Trace hemorrhage is seen around the fracture sites. No large hematoma is identified. 4. No additional fracture is seen. Pending Results Patient Have Any Pending Studies at Discharge: No Discharge Instructions Given to Patient (Per Discharging Provider) MEDICATION CHANGES: Ciprofloxacin by mouth twice daily x 2 additional days for UTI. Continue alternative Tylenol and ibuprofen for mild-moderate pain, oxycodone as needed for severe pain. SUMMARY OF TEST RESULTS: You were admitted to hospital secondary to fall. You underwent CT of pelvis which showed a sacral fracture through the superior aspect of S2 and also a vertically oriented fracture of the left sacral ala. Please see instructions below for weight bearing per orthopedic surgery At baseline patient has a walker, but typically does not use Discharging to [facility] PENDING TEST RESULTS: None RECOMMENDATIONS FOR FOLLOW-UP: Follow up with PCP as scheduled as well as orthopedic surgery. Complete antibiotic in its entirety. Continue medication regimen as scheduled aside from changes noted above. OTHER INSTRUCTIONS: Seek medical attention if you have: * temperature above 101 * chest pain or trouble breathing * abdominal pain, nausea, vomiting * diarrhea, dark stools or bloody stools * any unanswered questions or concerns Call 911 if symptoms are severe. Please take good care of yourself. Call if you have any questions or problems. You can reach a [facility] hospitalist on duty at [facility] 24 hours a day by calling [phone]. Jami Guzman PA-C [facility] Hospitalist Total Time Total Time Spent Total Time Spent (In Minutes): 60 Supervising Physician Co-Signing Physician Notes Pt seen and examined by me, care coordinated w/ Elana Guzman PA-C, pls refer to her note above for further detail. Patient is currently lying in bed, in no acute distress. Says that pain is well controlled while she is resting. Denies any fevers chills chest pain shortness of breath, denies abdominal pain nausea vomiting. Lung clear to auscultation, heart sounds regular. Abdomen soft nontender nondistended. Abx changed to ciprofloxacin for UTI. Plan to DC to [facility] today. MD Bruna
--- NOTE | 2022-06-06 18:06 | Discharge Summary ---
Discharge Summary Date of Service June 06, 2022 Admission HPI Per Admitting Provider This is a 41-year-old female with significant past medical history of multiple sclerosis, cerebellar ataxia, internuclear ophthalmoplegia, CHEL, ambulatory dysfunction, depression and tobacco use disorder who presents ED secondary to fall that occurred 2 days ago and subsequent pain. Patient's mother is at bedside. She was walking up the steps to get to her house and was carrying cigarettes in 1 hand and a water bottle and the other. Her mother went to open her front door and when she turned around patient was stumbling backwards and fell on her left side. Since the fall she has had significant low back, buttock and left-sided pain. This is caused her the inability to ambulate. She was brought to ED today with mother at bedside due to concern for ambulatory dysfunction and pain. She denies any numbness or tingling to lower extremities. She has chronic bladder urgency and incontinence and this is unchanged. She denies any bowel incontinence. She has otherwise been in her normal state of health. She does have MS and follows [facility] neurology. She is currently on Rituxan every 6 months. Her last dose was May 21. She denies any fever, chills, sweats, lightheadedness, dizziness, chest pain, shortness with, cough, nausea, vomiting, abdominal pain.In ED patient was found to have sacral fracture to the superior aspect of S2 and a vertically oriented fracture of the left sacral omid. Trace hemorrhage is seen around the fracture sites but no large hematoma is identified.She received oxycodone for pain control and this seemed to help. Currently pain is 7 out of 10. No other falls than Saturday. Typically uses walker at baseline but hasn't been using. Lives alone. Admission Exam Per Admitting Provider Constitutional: WD/WN,Cachectic, female vitals as above, NAD, sitting up in bed, agitated due to being admitted, conversing easily Head: Normocephalic, Atraumatic Eyes: PERRL, conjunctivae normal, anicteric sclerae ENMT: external ear and nose normal, oropharynx normal dry membranes Neck: trachea midline, no thyromegaly normal visual inspection Respiratory: normal respiratory effort, lungs clear to auscultation, no wheeze, rales, rhonchi. Normal insp/exp effort, no accessory muscle use Cardiovascular: tachycardiac rate, regular rhythm, no murmur, no edema Vessels: no JVD or carotid bruit Chest: normal inspection of chest Abdomen: normal bowel sounds, soft, nontender, no hepatosplenomegaly Musculoskeletal: no cyanosis or clubbing, decreased ROM to LLE, inability to extend/hyperflex Skin: no rashes, warm and dry normal turgor Neurologic: PERRL, EOMI, accommodation nl, no face palsy, no dysarthria CN's II-XI intact bilaterally and moves all extremities Psychiatric: A+Ox3, euthymic affect Lymphatic: no cervical or axillary lymphadenopathy : deferred Principal Dx & Hospital Course #1 = Principal Diagnosis Updated Medication List Medication Instructions Recorded Confirmed Type lorazepam 0.5 mg tablet 0.5 mg PO DIRECTED PRN PRIOR TO 06/03/22 06/03/22 History MRI PROCEDURE medroxyprogesterone 150 mg/mL 150 mg IM .[id number] 06/03/22 06/03/22 History intramuscular suspension nicotine 7 mg/24 hr daily 14 mg transdermal QAM 14 days #14 06/05/22 Rx transdermal patch ea acetaminophen 325 mg tablet 650 mg PO Q4H PRN fever or pain 06/06/22 Rx #30 tabs cholecalciferol (vitamin D3) 1,250 50,000 unit PO .weekly #5 caps 06/06/22 Rx mcg (50,000 unit) capsule ciprofloxacin HCl 250 mg tablet 250 mg PO BID #3 tabs 06/06/22 Rx citalopram 40 mg tablet 40 mg PO QAM #30 tabs 06/06/22 Rx ibuprofen 200 mg tablet (Advil) 400 mg PO Q6H PRN Pain #30 tabs 06/06/22 Rx oxycodone 5 mg capsule 5 mg PO Q6H PRN severe pain (scale 06/06/22 Rx score 7-10) #10 caps Hospital Stay Data Consultations 06/03/22 17:11 ED Decision to Admit Stat 06/03/22 19:16 Consult Neurology Routine Consult Orthopedic Surgery Routine Diagnostic Imagining Performed 06/03/22 14:56 CT pelvis wo con Stat Pending Results Patient Have Any Pending Studies at Discharge: No Discharge Instructions Given to Patient (Per Discharging Provider) MEDICATION CHANGES: Ciprofloxacin by mouth twice daily x 2 additional days for UTI. Continue alternative Tylenol and ibuprofen for mild-moderate pain, oxycodone as needed for severe pain. SUMMARY OF TEST RESULTS: You were admitted to hospital secondary to fall. You underwent CT of pelvis which showed a sacral fracture through the superior aspect of S2 and also a vertically oriented fracture of the left sacral ala. Please see instructions below for weight bearing per orthopedic surgery At baseline patient has a walker, but typically does not use Discharging to [facility] PENDING TEST RESULTS: None RECOMMENDATIONS FOR FOLLOW-UP: Follow up with PCP as scheduled as well as orthopedic surgery. Complete antibiotic in its entirety. Continue medication regimen as scheduled aside from changes noted above. OTHER INSTRUCTIONS: Seek medical attention if you have: * temperature above 101 * chest pain or trouble breathing * abdominal pain, nausea, vomiting * diarrhea, dark stools or bloody stools * any unanswered questions or concerns Call 911 if symptoms are severe. Please take good care of yourself. Call if you have any questions or problems. You can reach a [facility] Hospitalist on duty at [facility] 24 hours a day by calling [phone]. Jami Guzman PA-C [facility] Hospitalist
== END 2022-06-06 14:15 | DRG 552 ==
LOC: ED 13:00 → 3W 13:00 → SUATTDRO 17:11 → 3W 18:40 → SUATTDRO 06-05 10:27